=== PATIENT | female | born 1995 | race American Indian/Alaskan Native ===

== ENCOUNTER 2016-09-08 21:40 | Observation (INO) | payer OTHER ==
[2016-09-08 22:42] VITALS: BMI 34.3
[2016-09-08 22:45] VITALS: TEMP 98.3
[2016-09-08] MEDS ORDERED: Sodium Chloride 0.9% 1,000 ML IV STA (23:52)
[2016-09-09 00:52] LABS: ADD MANUAL DIFF? NO
[2016-09-09 01:08] LABS: PH,URINE 6.5 (4.7-8.0); URINE BILIRUBIN NEGATIVE (NEGATIVE); URINE BLOOD NEGATIVE (NEGATIVE); URINE GLUCOSE (UA) NEGATIVE (NEGATIVE); URINE KETONE NEGATIVE (NEGATIVE); URINE LEUKOCYTE ESTERASE NEGATIVE Leu/uL (NEGATIVE)
[2016-09-09 01:09] LABS: BASO # 0.02 K/mm3 (0.0-2.0); BASO % 0.3 % (0.0-3.0); EOS # 0.4 (0.0-0.7); GRAN # 3.43 (1.4-6.5); GRAN % 47.9 % (50.0-68.0); HEMATOCRIT 37.6 % (36.0-48.0); LYMPH # 2.9 (1.2-3.4); LYMPH % 40.4 % (22.0-35.0); MEAN CELL VOLUME 85.6 fL (80.0-105.0); MEAN CORPUSCULAR HEMOGLOBIN 29.8 pg (25.0-35.0); MEAN CORPUSCULAR HGB CONC 34.8 g/dl (31.0-37.0); MEAN PLATELET VOLUME 9.8 fl (7.0-11.0); MONO # 0.5 (0.1-0.6); MONO % 6.4 % (1.0-6.0); PLATELET COUNT 326 10^3/uL (120.0-450.0); URINE APPEARANCE CLEAR (CLEAR); URINE COLOR YELLOW (YELLOW); WHITE BLOOD COUNT 7.2 10^3/ul (4.5-11.0)
[2016-09-09 01:10] LABS: URINE PROTEIN NEGATIVE mg/dL (<30 mg/dL)
[2016-09-09 01:15] LABS: ALB/GLOB RATIO 1.1 (1.1-1.8); ALKALINE PHOSPHATASE 97 U/L (38-133); ALT/SGPT 15 U/L (7-56); AST/SGOT 34 U/L (15-39); BILIRUBIN,TOTAL 0.5 mg/dL (0.2-1.3); BLOOD UREA NITROGEN 10 mg/dL (7-21); CALCIUM 9.7 mg/dL (8.4-10.5); CARBON DIOXIDE 25 mmol/L (21-33); CHLORIDE 102 mmol/L (98-107); GFR AFRICAN-AMERICAN > 60; GLUCOSE,RANDOM 91 mg/dL (70-110); POTASSIUM 3.7 mmol/L (3.6-5.0); SODIUM 139 mmol/L (132-148); TOTAL PROTEIN 8.5 g/dL (5.8-8.3)
--- NOTE | 2016-09-09 01:41 | US ---
EXAM: US First Trimester, Transabdominal CLINICAL HISTORY: 21 years old, female; Pain; Pelvic pain; Patient HX: Pelvic pain +ucg TECHNIQUE: Real-time transabdominal obstetrical ultrasound of the maternal pelvis and a first trimester with image documentation. COMPARISON: No relevant prior studies available. FINDINGS: Gestation: No intrauterine gestational sac. Uterus/cervix: Endometrium: 1.1 cm in thickness. Closed cervix. Ovaries: Normal ovaries. No adnexal masses. Free fluid: No significant free fluid. IMPRESSION: 1. No intrauterine gestation. DDX: Early IUP, missed , ectopic . 2. Incidental/non-acute findings are described above. EXAM: US , Transvaginal CLINICAL HISTORY: 21 years old, female; Pain; Pelvic pain; Patient HX: Pelvic pain +ucg TECHNIQUE: Real-time transvaginal obstetrical ultrasound of the maternal pelvis and a first trimester with image documentation. Transvaginal imaging was used for better evaluation of the fetus and adnexa. COMPARISON: No relevant prior studies available. FINDINGS: Gestation: No intrauterine gestational sac. Uterus/cervix: Endometrium: 1.1 cm in thickness. Closed cervix. Ovaries: Normal ovaries. No adnexal masses. Free fluid: No significant free fluid.
--- NOTE | 2016-09-09 03:00 | ED PDOC ---
Arrival/HPI <Wayne Asencio - Last Filed: 09/09/16 03:47> - General Historian: Patient <Melissa Robles - Last Filed: 09/09/16 04:12> - General Chief Complaint: Abdominal Pain Time Seen by Provider: 09/08/16 23:52 - History of Present Illness Narrative History of Present Illness (Text): 09/09/16 21-year-old female presents today with lower abdominal cramping and nausea 1 week. Patient states her last menstrual period was August 03. Patient denies vaginal bleeding or vaginal discharge. Denies back pain. Patient states she has an occasional abdominal cramp. Denies pain at present time. No chest pain or shortness of breath. No fevers or chills. Denies urinary symptoms. No other complaints (Melissa Robles) Past Medical History - Provider Review Nursing Documentation Reviewed: Yes - Travel History Have you recently traveled outside [place] w/in the past 3 mons?: No - Infectious Disease Hx of Infectious Diseases: None - Tetanus Immunization Tetanus Immunization: Up to Date - Cardiac Hx Cardiac Disorders: No - Pulmonary Hx Asthma: Yes - Neurological Hx Neurological Disorder: No - HEENT Hx HEENT Disorder: No - Renal Hx Renal Disorder: No - Endocrine/Metabolic Hx Endocrine Disorders: No - Hematological/Oncological Hx Blood Disorders: No - Integumentary Hx Dermatological Disorder: No - Musculoskeletal/Rheumatological Hx Musculoskeletal Disorders: No - Gastrointestinal Hx Gastrointestinal Disorders: No - Genitourinary/Gynecological Hx Genitourinary Disorders: No - Psychiatric Hx Psychophysiologic Disorder: No Hx Depression: No Hx Emotional Abuse: No Hx Physical Abuse: No Hx Substance Use: Yes - Past Surgical History Past Surgical History: No Previous - Anesthesia Hx Anesthesia: No Hx Anesthesia Reactions: No Hx Malignant Hyperthermia: No - Suicidal Assessment Feels Threatened In Home Enviroment: No <Melissa Robles - Last Filed: 09/09/16 04:12> Family/Social History - Physician Review Nursing Documentation Reviewed: Yes Family/Social History: Unknown Family HX Smoking Status: Never Smoked Hx Alcohol Use: Yes Hx Substance Use: Yes Substance used: Marijuana Hx Substance Use Treatment: No <Melissa Robles - Last Filed: 09/09/16 04:12> Allergies/Home Meds <Wayne Asencio - Last Filed: 09/09/16 03:47> <Melissa Robles T - Last Filed: 09/09/16 04:12> Allergies/Adverse Reactions: Allergies No Known Allergies Allergy (Verified 09/08/16 22:41) Home Medications: Home Meds Medication Instructions Recorded Confirmed Albuterol HFA [Ventolin HFA 90 1 puff INH PRN PRN 09/08/16 09/08/16 mcg/actuation (8 g)] Review of Systems - Review of Systems Constitutional: absent: Fatigue, Fevers Respiratory: absent: SOB, Cough Cardiovascular: absent: Chest Pain, Palpitations Gastrointestinal: Abdominal Pain, Nausea. absent: Constipation, Diarrhea, Vomiting Genitourinary Female: absent: Dysuria, Frequency, Hematuria Musculoskeletal: absent: Arthralgias, Back Pain, Neck Pain Skin: absent: Rash, Pruritis Neurological: absent: Headache, Dizziness Psychiatric: absent: Anxiety, Depression, Suicidal Ideation <Melissa Robles - Last Filed: 09/09/16 04:12> Physical Exam Vital Signs Reviewed: Yes Temperature: Afebrile Blood Pressure: Normal Pulse: Regular Respiratory Rate: Normal Appearance: Positive for: Well-Appearing, Non-Toxic, Comfortable Pain Distress: None Mental Status: Positive for: Alert and Oriented X 3 - Systems Exam Head: Present: Atraumatic Mouth: Present: Moist Mucous Membranes Neck: Present: Normal Range of Motion Respiratory/Chest: Present: Clear to Auscultation, Good Air Exchange. No: Respiratory Distress, Accessory Muscle Use Cardiovascular: Present: Regular Rate and Rhythm, Normal S1, S2. No: Murmurs Abdomen: Present: Normal Bowel Sounds. No: Tenderness, Distention, Peritoneal Signs, Rebound, Guarding Genitourinary/Pelvic Exam: Present: Normal External Genitalia, Cervical os Closed, Other (chaparoned by Nicole SMITH RN). No: Vaginal Discharge, Vaginal Bleeding, Vaginal Lesions, Adenexal Tenderness, Adenexal Mass, Cervical Motion Tendernes, Odor Back: Present: Normal Inspection. No: CVA Tenderness Upper Extremity: Present: Normal ROM Lower Extremity: Present: Normal ROM Neurological: Present: GCS=15, Speech Normal Skin: Present: Warm, Dry, Normal Color. No: Rashes Psychiatric: Present: Alert, Oriented x 3 <Melissa Robles - Last Filed: 09/09/16 04:12> Vital Signs Temp Pulse Resp BP Pulse Ox 09/09/16 03:49 78 14 125/75 99 09/09/16 02:44 88 15 128/83 98 09/09/16 00:00 90 15 126/80 98 09/08/16 22:44 98.3 F 98 H 15 95/74 L 100 Medical Decision Making <Wayne Asencio - Last Filed: 09/09/16 03:47> <Melissa Robles - Last Filed: 09/09/16 04:12> ED Course and Treatment: 09/09/16 04:05 Patient is nontoxic well appearing in no distress. Vital signs are stable CBC: Within normal limits CMP: Within normal limits Beta hC.34 TYPE AND SCREEN: o+ Urinalysis:: wnl Ultrasound: FINDINGS: Gestation: No intrauterine gestational sac. Uterus/cervix: Endometrium: 1.1 cm in thickness. Closed cervix. Ovaries: Normal ovaries. No adnexal masses. Free fluid: No significant free fluid. IMPRESSION: 1. No intrauterine gestation. DDX: Early IUP, missed , ectopic . 2. Incidental/non-acute findings are described above. EXAM: US , Transvaginal FINDINGS: Gestation: No intrauterine gestational sac. Uterus/cervix: Endometrium: 1.1 cm in thickness. Closed cervix. Ovaries: Normal ovaries. No adnexal masses. Free fluid: No significant free fluid. IMPRESSION: 1. No intrauterine gestation. DDX: Early IUP, missed , ectopic . 2. Incidental/non-acute findings are described above. Discussed all the results the patient. advised f[facility]u with the [facility] shift lead within the next 2 days. Patient was advised to take vitamins daily. She was advised to stop smoking and drinking. She is advised not to use drugs. Patient was advised to return in 2 days (48 hours) for repeat beta hCG. I discussed signs and symptoms of ectopic with the patient. I advised that that this may just be an early that we cannot rule out ectopic at this time and the patient needs to have close follow-up. I advised immediate return if symptoms worsen,persist or if new symptoms develop. Patient verbalizes understanding of discharge instructions and need for immediate followup. all aspects of this case were discussed the attending of record. Impression: Positive test, abdominal pain Tylenol every 4 hours as needed for pain Increase fluids Take vitamins daily Followup with the [facility] MANAGER within the next 2 days Return immediately if symptoms worsen persist or if new symptoms develop: High fevers, heavy bleeding, severe abdominal pain, vomiting, diarrhea, dizziness or weakness or any other concerning symptoms develop. Repeat the beta hCG in 48 hours (Melissa Robles) - Lab Interpretations Lab Results: Lab Results 09/08/16 01:20: Blood Type O POSITIVE, Antibody Screen Negative, BBK History Checked No verified bt - RAD Interpretation Radiology Orders: 09/08/16 23:52 OB TRANSVAGINAL [US] Stat - Medication Orders Current Medication Orders: Discontinued Medications Sodium Chloride (Sodium Chloride 0.9%) 1,000 mls @ 999 mls/hr IV .Q1H1M STA Stop: 09/09/16 00:52 Last Admin: 09/09/16 02:46 Dose: 999 MLS/HR eMAR Start Stop Document 09/09/16 02:46 LAC (Rec: 09/09/16 02:46 LAC [id number]) Intravenous Solution Start Date 09/09/16 Start Time 00:01 End Date 09/09/16 End time 01:00 Total Infusion Time 59 ED OBSERVATION <Wayne Asencio - Last Filed: 09/09/16 03:47> Discharge: Yes Date of observation admission: 09/08/16 Time of observation admission: 23:55 <Melissa Robles - Last Filed: 09/09/16 04:12> - Observation admission statement Patient is being placed in observation because:: abdominal pain (Melissa Robles) - Goals of Observation Goals of observation are:: improvement in symptoms (Melissa Robles) - Progress Note Progress Note: 09/09/16 01:30 pt non toxic well appearing; no distress. resting comfortably in er. 09/09/16 02:00 pt in no distress; vitals stable. all results discussed with patient (Melissa Robles) - PA / [employer] / Resident Statement MD/DO has reviewed & agrees with the documentation as recorded. <Wayne Asencio - Last Filed: 09/09/16 03:47> Disposition/Present on Arrival <Wayne Asencio - Last Filed: 09/09/16 03:47> - Present on Arrival Any Indicators Present on Arrival: No History of DVT/PE: No History of Uncontrolled Diabetes: No Urinary Catheter: No History of Decub. Ulcer: No History Surgical Site Infection Following: None - Disposition Have Diagnosis and Disposition been Completed?: Yes Disposition Time: 02:40 Patient Plan: Discharge <Melissa Robles - Last Filed: 09/09/16 04:12> - Disposition Diagnosis: Positive test, Abdominal pain Disposition: HOME/ ROUTINE Patient Problems: Current Active Problems Problem Status Diagnosed Abdominal pain Acute Positive test Acute Condition: GOOD
[2016-09-09 03:50] VITALS: BP 125/75; PULSE 78; RESP 14; O2SAT 99
== END 2016-09-09 03:49 | disposition home or self-care (01) ==
LOC: ED 21:40 → EROBSV 23:55
PROVIDERS: ADMIT Emergency Medicine; ATTEND Emergency Medicine
DX: Z32.01 Encounter for pregnancy test, result positive (principal); R10.30 Lower abdominal pain, unspecified
CPT/HCPCS: 76817; 80053; 81003; 84702; 85025; 86850; 86900; 87086; 96360; 99284; G0378; J7040

== ENCOUNTER 2016-09-11 13:02 | Emergency (ER) | payer OTHER ==
[2016-09-11 13:23] VITALS: BMI 37.8
[2016-09-11 13:27] VITALS: BP 127/71; PULSE 98; RESP 16; TEMP 98.8; O2SAT 98
--- NOTE | 2016-09-11 14:25 | ED PDOC ---
Arrival/HPI - General Chief Complaint: Abdominal Pain Time Seen by Provider: 09/11/16 13:31 Historian: Patient - History of Present Illness Narrative History of Present Illness (Text): 09/11/16 15:02 21-year-old female presents today for repeat beta hCG. Patient was seen in the ER 2 days ago with intermittent abdominal pain. Patient found out that she was . Patient at present time denies nausea vomiting diarrhea constipation. Denies abdominal pain. No vaginal bleeding or vaginal discharge. Patient states she is just here for repeat blood test. Past Medical History - Provider Review Nursing Documentation Reviewed: Yes - Travel History Have you recently traveled outside [place] w/in the past 3 mons?: No - Infectious Disease Hx of Infectious Diseases: None - Tetanus Immunization Tetanus Immunization: Up to Date - Cardiac Hx Cardiac Disorders: No - Pulmonary Hx Respiratory Disorders: Yes Hx Asthma: Yes - Neurological Hx Neurological Disorder: No - HEENT Hx HEENT Disorder: No - Renal Hx Renal Disorder: No - Endocrine/Metabolic Hx Endocrine Disorders: No - Hematological/Oncological Hx Blood Disorders: No - Integumentary Hx Dermatological Disorder: No - Musculoskeletal/Rheumatological Hx Musculoskeletal Disorders: No - Gastrointestinal Hx Gastrointestinal Disorders: No - Genitourinary/Gynecological Hx Genitourinary Disorders: No - Psychiatric Hx Psychophysiologic Disorder: No Hx Depression: No Hx Emotional Abuse: No Hx Physical Abuse: No Hx Substance Use: No - Past Surgical History Past Surgical History: No Previous - Anesthesia Hx Anesthesia: No Hx Anesthesia Reactions: No Hx Malignant Hyperthermia: No - Suicidal Assessment Feels Threatened In Home Enviroment: No Family/Social History - Physician Review Nursing Documentation Reviewed: Yes Family/Social History: Unknown Family HX Smoking Status: Never Smoked Hx Alcohol Use: No Hx Substance Use: No Substance used: Marijuana Hx Substance Use Treatment: No Allergies/Home Meds Allergies/Adverse Reactions: Allergies No Known Allergies Allergy (Verified 09/11/16 13:23) Home Medications: Home Meds Medication Instructions Recorded Confirmed Albuterol HFA [Ventolin HFA 90 1 puff INH PRN PRN 09/08/16 09/11/16 mcg/actuation (8 g)] Review of Systems - Review of Systems Constitutional: absent: Fatigue, Fevers Respiratory: absent: SOB, Cough Cardiovascular: absent: Chest Pain, Palpitations Gastrointestinal: absent: Abdominal Pain, Diarrhea, Nausea, Vomiting Genitourinary Female: absent: Dysuria, Frequency, Hematuria, Vaginal Bleeding, Vaginal Discharge Musculoskeletal: absent: Arthralgias, Back Pain, Neck Pain Skin: absent: Rash, Pruritis Neurological: absent: Headache, Dizziness Psychiatric: absent: Anxiety, Depression Physical Exam Vital Signs Reviewed: Yes Vital Signs Temp Pulse Resp BP Pulse Ox 09/11/16 13:23 98.8 F 98 H 16 127/71 98 Temperature: Afebrile Blood Pressure: Normal Pulse: Regular Respiratory Rate: Normal Appearance: Positive for: Well-Appearing, Non-Toxic, Comfortable Pain Distress: None Mental Status: Positive for: Alert and Oriented X 3 - Systems Exam Head: Present: Atraumatic Neck: Present: Normal Range of Motion Respiratory/Chest: Present: Clear to Auscultation, Good Air Exchange. No: Respiratory Distress, Accessory Muscle Use Cardiovascular: Present: Regular Rate and Rhythm, Normal S1, S2. No: Murmurs Abdomen: Present: Normal Bowel Sounds. No: Tenderness, Distention, Peritoneal Signs, Rebound, Guarding Back: Present: Normal Inspection. No: CVA Tenderness Lower Extremity: No: Edema Neurological: Present: GCS=15, Speech Normal Skin: Present: Warm, Dry, Normal Color. No: Rashes Psychiatric: Present: Alert, Oriented x 3 Medical Decision Making ED Course and Treatment: 09/11/16 15:03 Patient nontoxic well-appearing no distress with stable vital signs presenting for repeat beta hCG. Beta hC.40 which has increased from 760.34 2 days ago Advised the patient that even though the numbers are doubling she will still need to have an ultrasound to confirm that the fetus is within the uterus. Patient was advised of the signs and symptoms of ectopic and the need for immediate return of those symptoms develop. I discussed the results in depth with the patient and advised follow-up with the molecular biologist within the next 2 days. I've advised continuing vitamins as prescribed. Advised me to return if patient develops any concerning symptoms. Patient verbalizes understanding of discharge instructions and need for immediate followup. Impression: Positive test follow-up with molecular biologist within the next 2 days Increase fluids vitamins daily Return if symptoms worsen persist or if new concerning symptoms develop - Lab Interpretations Lab Results: Lab Results 09/11/16 13:40: Beta HCG, Quant 1887.40 H Disposition/Present on Arrival - Present on Arrival Any Indicators Present on Arrival: No History of DVT/PE: No History of Uncontrolled Diabetes: No Urinary Catheter: No History of Decub. Ulcer: No History Surgical Site Infection Following: None - Disposition Have Diagnosis and Disposition been Completed?: Yes Diagnosis: Positive test Disposition: HOME/ ROUTINE Disposition Time: 14:41 Patient Plan: Discharge Patient Problems: Current Active Problems Problem Status Diagnosed Positive test Acute Condition: GOOD Additional Instructions: Increase fluids Followup with the [facility] TE[facility]ER within the next 2 days Return immediately if symptoms worsen persist or if new symptoms develop: High fevers, heavy bleeding, severe abdominal pain, vomiting, diarrhea, dizziness or weakness or any other concerning symptoms develop. Referrals: Isabella Tee MD [Medical Doctor] - Follow up with primary
== END 2016-09-11 15:21 | disposition home or self-care (01) ==
LOC: ED 13:02
DX: Z32.01 Encounter for pregnancy test, result positive (principal)

== ENCOUNTER 2016-11-17 15:11 | Emergency (ER) | payer OTHER ==
[2016-11-17 15:11] VITALS: BMI 37.8
[2016-11-17 15:49] VITALS: TEMP 99
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
[2016-11-17 16:14] VITALS: RESP 18; O2SAT 98
[2016-11-17 16:15] LABS: ADD MANUAL DIFF? NO
[2016-11-17 16:19] LABS: BASO # 0.02 K/mm3 (0.0-2.0); BASO % 0.3 % (0.0-3.0); EOS # 0.3 (0.0-0.7); EOS % 4.4 % (1.5-5.0); GRAN # 4.58 (1.4-6.5); GRAN % 62.4 % (50.0-68.0); HEMATOCRIT 34.4 % (36.0-48.0); LYMPH # 1.8 (1.2-3.4); LYMPH % 24.4 % (22.0-35.0); MEAN CELL VOLUME 87.3 fL (80.0-105.0); MEAN CORPUSCULAR HEMOGLOBIN 29.9 pg (25.0-35.0); MEAN CORPUSCULAR HGB CONC 34.3 g/dl (31.0-37.0); MEAN PLATELET VOLUME 9.3 fl (7.0-11.0); MONO # 0.6 (0.1-0.6); MONO % 8.5 % (1.0-6.0); PLATELET COUNT 281 10^3/uL (120.0-450.0); RED CELL DISTRIBUTION WIDTH 13.7 % (11.5-14.5); URINE APPEARANCE SL CLOUDY (CLEAR); URINE BILIRUBIN NEGATIVE (NEGATIVE); URINE BLOOD NEGATIVE (NEGATIVE); URINE COLOR YELLOW (YELLOW); URINE GLUCOSE (UA) NEGATIVE (NEGATIVE); URINE KETONE TRACE mg/dL (NEGATIVE); URINE LEUKOCYTE ESTERASE NEGATIVE Leu/uL (NEGATIVE); URINE PROTEIN 30 mg/dL (<30 mg/dL); WHITE BLOOD COUNT 7.3 10^3/ul (4.5-11.0)
[2016-11-17 16:31] LABS: ALB/GLOB RATIO 1.1 (1.1-1.8); ALKALINE PHOSPHATASE 68 U/L (38-133); ALT/SGPT 31 U/L (7-56); AST/SGOT 22 U/L (15-39); BILIRUBIN,TOTAL 0.3 mg/dL (0.2-1.3); BLOOD UREA NITROGEN 10 mg/dL (7-21); CALCIUM 9.5 mg/dL (8.4-10.5); CARBON DIOXIDE 25 mmol/L (21-33); CHLORIDE 107 mmol/L (98-107); GFR AFRICAN-AMERICAN > 60; GLUCOSE,RANDOM 86 mg/dL (70-110); POTASSIUM 3.8 mmol/L (3.6-5.0); SODIUM 136 mmol/L (132-148); TOTAL PROTEIN 7.3 g/dL (5.8-8.3)
[2016-11-17 16:47] LABS: URINE BACTERIA FEW (NEG); URINE RBC NEGATIVE /hpf (0-2); URINE WBC 0 - 2 /hpf (0-6)
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
[2016-11-17 17:46] VITALS: BP 131/75; PULSE 89
--- NOTE | 2016-11-17 18:28 | RAD ---
PROCEDURE: Right Foot Radiographs. HISTORY: Pain COMPARISON: None. FINDINGS: BONES: Bone alignment and mineralization are normal. No acute fracture or bone destruction. JOINTS: Normal. SOFT TISSUES: Normal. OTHER FINDINGS: None. IMPRESSION: No acute fracture or dislocation.
== END 2016-11-17 18:23 | disposition home or self-care (01) ==
LOC: ED 15:11
DX: S90.31XA Contusion of right foot, initial encounter (principal); V49.9XXA Car occupant (driver) (passenger) injured in unspecified traffic accident, initial encounter; O26.891 Other specified pregnancy related conditions, first trimester; R10.2 Pelvic and perineal pain; Z3A.14 14 weeks gestation of pregnancy

== ENCOUNTER 2017-05-26 17:41 | Inpatient (IN) | payer OTHER ==
[2017-05-26 17:41] VITALS: BMI 37.8
--- NOTE | 2017-05-26 18:46 | ED PDOC ---
Arrival/HPI - History of Present Illness Time/Duration: 4-6 hours Symptom Onset: Sudden Symptom Course: Worsening Quality: Unable to Describe Severity Level: 10 <Misha Chen - Last Filed: 05/26/17 23:13> <Nemo Rod - Last Filed: 05/29/17 07:58> - General Chief Complaint: Abdominal Pain Time Seen by Provider: 05/26/17 17:47 - History of Present Illness Narrative History of Present Illness (Text): 21 year old female with PMHx of Asthma and gestational diabetes who presents to the ED complaining of non-radiating lower Abdominal pain with associated nausea and vomiting. Patient is unable to describe the quality of the pain but rates it a 10/10. She denies any modalities to control the pain or relieving factors. Patient originally thought she was having hunger pains so she ate syriac food and the pain worsened. Patient denies any fevers, chills, chest pain, SOB, diarrhea, constipation, urinary frequency, dysuria, hematuria, or blood in the stool. Patient gave by 3 weeks ago. (Misha Chen) Past Medical History - Provider Review Nursing Documentation Reviewed: Yes - Infectious Disease Hx of Infectious Diseases: None - Tetanus Immunization Tetanus Immunization: Up to Date - Reproductive Menopause: No - Cardiac Hx Cardiac Disorders: No - Pulmonary Hx Respiratory Disorders: Yes Hx Asthma: Yes - Neurological Hx Neurological Disorder: No - HEENT Hx HEENT Disorder: No - Renal Hx Renal Disorder: No - Endocrine/Metabolic Hx Endocrine Disorders: No - Hematological/Oncological Hx Blood Disorders: No - Integumentary Hx Dermatological Disorder: No - Musculoskeletal/Rheumatological Hx Musculoskeletal Disorders: No - Gastrointestinal Hx Gastrointestinal Disorders: No - Genitourinary/Gynecological Hx Genitourinary Disorders: No - Psychiatric Hx Psychophysiologic Disorder: No Hx Depression: No Hx Emotional Abuse: No Hx Physical Abuse: No Hx Substance Use: No - Past Surgical History Past Surgical History: No Previous - Surgical History Other/Comment: C Section - Anesthesia Hx Anesthesia: No Hx Anesthesia Reactions: No Hx Malignant Hyperthermia: No - Suicidal Assessment Feels Threatened In Home Enviroment: No <Misha Chen - Last Filed: 05/26/17 23:13> Family/Social History - Physician Review Nursing Documentation Reviewed: Yes Family/Social History: Diabetes, Hypertension Smoking Status: Never Smoked Hx Alcohol Use: Yes Frequency of alcohol use: Socially Hx Substance Use: No Substance used: Marijuana Hx Substance Use Treatment: No <Casa Chenblanche - Last Filed: 05/26/17 23:13> Allergies/Home Meds <GustavoMisha - Last Filed: 05/26/17 23:13> <Nemo Rod - Last Filed: 05/29/17 07:58> Allergies/Adverse Reactions: Allergies No Known Allergies Allergy (Verified 11/17/16 15:46) Home Medications: Home Meds Medication Instructions Recorded Confirmed Albuterol HFA [Ventolin HFA 90 1 puff INH PRN PRN 09/08/16 05/28/17 mcg/actuation (8 g)] Review of Systems - Physician Review All systems were reviewed & negative as marked: Yes (As per HPI) - Review of Systems Constitutional: absent: Fevers Respiratory: Normal. absent: SOB Cardiovascular: Normal. absent: Chest Pain <GustavoMisha - Last Filed: 05/26/17 23:13> Physical Exam Vital Signs Reviewed: Yes Temperature: Afebrile Blood Pressure: Normal Pulse: Regular Respiratory Rate: Normal Appearance: Positive for: Uncomfortable Pain Distress: Severe Mental Status: Positive for: Alert and Oriented X 3 - Systems Exam Head: Present: Atraumatic, Normocephalic Extroacular Muscles: Present: EOMI Conjunctiva: Present: Normal Ears: Present: Normal Mouth: Present: Moist Mucous Membranes Nose (External): Present: Atraumatic Respiratory/Chest: Present: Clear to Auscultation. No: Wheezes, Rales, Rhonchi Cardiovascular: Present: Regular Rate and Rhythm, Normal S1, S2. No: Murmurs Abdomen: Present: Tenderness (periumbilical, RUQ, and most tender in RLQ), Peritoneal Signs, Rovsing's Sign Present Back: No: CVA Tenderness Upper Extremity: Present: Normal Inspection Lower Extremity: Present: Normal Inspection. No: Edema Neurological: Present: GCS=15, Speech Normal Skin: Present: Warm, Dry, Normal Color, Other ( Scar, clean, dry, without erythema, or dehiscense) Psychiatric: Present: Alert, Oriented x 3 <Misha Chen - Last Filed: 05/26/17 23:13> Vital Signs Temp Pulse Resp BP Pulse Ox 05/27/17 00:27 98.2 F 55 L 17 129/61 100 05/26/17 22:23 98.9 F 05/26/17 22:21 57 L 18 125/56 L 100 05/26/17 17:53 98.9 F 76 16 132/84 99 Medical Decision Making - Lab Interpretations I have reviewed the lab results: Yes - RAD Interpretation Truck Bench Mechanic: Radiologist <Misha Chen - Last Filed: 05/26/17 23:13> <Nemo Rod - Last Filed: 05/29/17 07:58> ED Course and Treatment: 21 year old female with PMHx of Asthma and Gestational Diabetes presents with Abdominal Pain. --CBC/CMP --UA --Lipase --NS fluid Bolus --Toradol 30 --Zofran --CT Abd/Pelvis no IV or PO contrast --Reassess and Disposition Reassessment: Pain has improved from a 10/10 to a [address] Abd/Pelvis IMPRESSION by Dr. Amanda Blanco: -Appendicolith. Appendix is dilated to 14 mm and fluid filled. Appearance -consistent with acute appendicitis. Correlate clinically. Additional details/findings as above. --Patient to be admitted. Case discussed with Dr. Marte and vice president supply chain 05/26/17 23:13 (Misha Chen) 05/26/17 21:45 ABD& PELVIS W/O PO OR IV CONT CT Scan This imaging exam was performed at [facility] EXAM: CT Abdomen and Pelvis Without Intravenous Contrast CLINICAL HISTORY: 21 years old, female; Signs and symptoms; Nausea and vomiting; Patient HX:Post 2x weeks; Additional info: Abdominal pain TECHNIQUE: Axial computed tomography images of the abdomen and pelvis without intravenous contrast. All CT scans at this facility use one or more dose reduction techniques, viz.: automated exposure control; ma/kV adjustment per patient size (including targeted exams where dose is matched to indication; i.e. head); or iterative reconstruction technique. Coronal and sagittal reformatted images were created and reviewed. COMPARISON: CT - ABD PELVIS W/O PO OR IV CONT 2015-06-19 09:41 FINDINGS: Lower thorax: No acute findings. ABDOMEN: Liver: No acute abnormality as visualized. Gallbladder and bile ducts: No acute abnormality as visualized. Pancreas: No acute abnormality as visualized. Spleen: No splenomegaly. Adrenals: No acute abnormality as visualized. Kidneys and ureters: No obstructing stones. No hydronephrosis. Stomach and bowel: Limited evaluation without contrast. No obstruction. Appendix: Appendicolith. Appendix is dilated to 14 mm and fluid filled. PELVIS: Bladder: Collapsed. Limited evaluation. Reproductive: Enlarged uterus consistent with status. Limited evaluation without contrast. ABDOMEN and PELVIS: Intraperitoneal space: No free air. No significant fluid collection. Bones: No acute fracture. Soft tissues: Fat-containing umbilical hernia. Vasculature: No abdominal aortic aneurysm. Lymph nodes: Shotty nodes. Please note evaluation for underlying visceral lesions/abnormalities limited without intravenous contrast. IMPRESSION: Appendicolith. Appendix is dilated to 14 mm and fluid filled. Appearance consistent with acute appendicitis. Correlate clinically. Additional details/findings as above. 05/26/17 22:45 Patient seen and examined with biomedical specialist. Patient recently had delivered baby via csection 2 weeks ago. States that she developed abdominal pain with nausea gradually today. On exam she has focal diffuse right sided pain. Pain not colikcy. Denies urinary symptoms. Urine dip positive for although patient is TWO WEEKS and this result likely due to recent delivery. Patient with improved pain after toradol and ivf and zofran. CT reviewed suggestive of appendicitis. CT findings reviewed with patient and mother, I discussed case and exam with on- call surgeron Dr. Diaz, vice president supply chain examined patient in ED. Patient on re-exam is smiling, comfortable. Nausea improved, afebrile. Pain is persistent but improved. IV antibiotics initiated. No peritoneal signs on re-exam. Mother requests Dr. Rios for patient's admitting physician, we discussed case with Dr. Marte covering for Dr. Rios who accepts admission to his service. (Nemo Rod) - Lab Interpretations Microbiology Results: Microbiology Results 05/26/17 20:00 Urine,Clean Catch Urine Culture - Final No Growth (<1,000 CFU/ML) Lab Results: 05/26/17 19:15 05/26/17 21:00 Lab Results 05/26/17 21:00: Sodium 142, Potassium 3.7, Chloride 107, Carbon Dioxide 20 L, Anion Gap 19, BUN 7, Creatinine 0.8, Est GFR ( Amer) > 60, Est GFR (Non- Af Amer) > 60, Random Glucose 77, Calcium 9.7, Total Bilirubin 0.7, AST 29, ALT 29, Alkaline Phosphatase 184 H, Total Protein 8.6 H, Albumin 4.6, Globulin 4.0, Albumin/Globulin Ratio 1.2, Lipase 56 05/26/17 19:15: PT 12.2, INR 1.12 H, APTT 30.3 05/26/17 19:15: Urine Color Yellow, Urine Appearance Sl cloudy, Urine pH 6.0, Ur Specific [place] 1.020, Urine Protein 30 H, Urine Glucose (UA) Negative, Urine Ketones Negative, Urine Blood Large H, Urine Nitrate Negative, Urine Bilirubin Negative, Urine Urobilinogen 0.2, Ur Leukocyte Esterase Trace H, Urine RBC Tntc, Urine WBC 5 - 10, Ur Epithelial Cells 4 - 5, Urine Bacteria Mod 05/26/17 19:15: WBC 10.6 D, RBC 4.47, Hgb 12.8, Hct 39.3, MCV 87.9, MCH 28.6, MCHC 32.6, RDW 15.1 H, Plt Count 346, MPV 10.5, Gran % 80.5 H, Lymph % (Auto) 13.6 L, [place] % (Auto) 3.3, Eos % (Auto) 2.4, Baso % (Auto) 0.2, Gran # 8.55 H, Lymph # 1.5, [place] # 0.4, Eos # 0.3, Baso # 0.02 - RAD Interpretation Radiology Orders: 05/26/17 18:51 ABD & PELVIS W/O PO OR IV CONT [CT] Stat - Medication Orders Current Medication Orders: Discontinued Medications Acetaminophen (Tylenol 325mg Tab) 650 mg PO Q6H PRN PRN Reason: Fever >100.4 F Famotidine (Pepcid) 20 mg IVP STAT STA Stop: 05/26/17 18:58 Last Admin: 05/26/17 19:28 Dose: 20 mg IVP Administration Document 05/26/17 19:28 RD (Rec: 05/26/17 19:36 RD [id number]) Charges for Administration # of IVP Administrations 1 Hydromorphone HCl (Dilaudid) 1 mg IVP Q4H PRN PRN Reason: Pain, moderate (4-7) Last Admin: 05/28/17 05:03 Dose: 1 mg MAR Pain Assessment Document 05/28/17 05:03 (Rec: 05/28/17 05:04 [id number]) Pain Reassessment Is this a pain reassessment? No Sleep Is patient sleeping during reassessment? No Presence of Pain Presence of Pain Yes Pain Scale Used Pain Scale Used Numeric Location Pain Location Body Site Abdomen Description Description Intermittent Intensity of Pain at present 7 IVP Administration Document 05/28/17 05:03 (Rec: 05/28/17 05:04 [id number]) Charges for Administration # of IVP Administrations 1 Re-Assess: [facility] Pain Assessment Document 05/28/17 06:03 [email or web address] (Rec: 05/28/17 06:34 [email or web address] [id number]) Pain Reassessment Is this a pain reassessment? Yes Sleep Is patient sleeping during reassessment? Yes Hydromorphone HCl (Dilaudid) 0.5 mg IVP Q15M PRN PRN Reason: Pain, moderate (4-7) Stop: 05/27/17 12:32 Sodium Chloride (Sodium Chloride 0.9%) 1,000 mls @ 999 mls/hr IV .Q1H1M STA Stop: 05/26/17 19:51 Last Admin: 05/26/17 19:32 Dose: 999 mls/hr eMAR Start Stop Document 05/26/17 19:32 RD (Rec: 05/26/17 19:32 RD [id number]) Intravenous Solution Start Date 05/26/17 Start Time 19:32 End Date 05/26/17 End time 20:32 Total Infusion Time 60 Ceftriaxone Sodium (Rocephin 1 Gram Ivpb) 1 gm in 100 mls @ 200 mls/hr IVPB ONCE STA PRN Reason: Protocol Stop: 05/26/17 22:11 Last Admin: 05/26/17 21:55 Dose: 200 mls/hr eMAR Start Stop Document 05/26/17 21:55 RD (Rec: 05/26/17 21:56 RD [id number]) Intravenous Solution Start Date 05/26/17 Start Time 21:55 End Date 05/26/17 End time 22:25 Total Infusion Time 30 Metronidazole (Flagyl) 500 mg in 100 mls @ 100 mls/hr IVPB STAT STA PRN Reason: Protocol Stop: 05/26/17 22:42 Last Admin: 05/26/17 23:00 Dose: 100 mls/hr eMAR Start Stop Document 05/26/17 23:00 RD (Rec: 05/26/17 23:01 RD [id number]) Intravenous Solution Start Date 05/26/17 Start Time 23:00 End Date 05/27/17 End time 00:00 Total Infusion Time 60 Dextrose/Sodium Chloride (Dextrose 5%/0.45% Ns 1000 Ml) 1,000 mls @ 100 mls/hr IV .Q10H LEOPOLDO Last Admin: 05/26/17 22:49 Dose: 100 mls/hr eMAR Start Stop Document 05/26/17 22:49 RD (Rec: 05/26/17 22:50 RD [id number]) Intravenous Solution Start Date 05/26/17 Start Time 22:50 Metronidazole (Flagyl) 250 mg in 50 mls @ 100 mls/hr IV Q8 LEOPOLDO PRN Reason: Protocol Stop: 06/01/17 06:01 Last Admin: 05/28/17 06:27 Dose: 100 mls/hr eMAR Start Stop Document 05/28/17 06:27 [email or web address] (Rec: 05/28/17 06:27 [email or web address] [id number]) Intravenous Solution Start Date 05/28/17 Start Time 06:27 End Date 05/28/17 End time 07:00 Total Infusion Time 33 Ceftriaxone Sodium (Rocephin 1 Gram Ivpb) 1 gm in 100 mls @ 100 mls/hr IVPB DAILY LEOPOLDO PRN Reason: Protocol Last Admin: 05/28/17 10:11 Dose: Lactated Ringer's (Lactated Ringer's) 1,000 mls @ 75 mls/hr IV .[id number] LEOPOLDO Stop: 05/27/17 12:46 Lactated Ringer's (Lactated Ringer's) 1,000 mls @ 100 mls/hr IV .Q10H LEOPOLDO Last Admin: 05/28/17 06:35 Dose: Potassium Chloride (Potassium Chloride 20 Meq/100 Ml) 20 meq in 100 mls @ 50 mls/hr IVPB Q2H LEOPOLDO Stop: 05/27/17 14:59 Last Admin: 05/27/17 17:20 Dose: 50 mls/hr eMAR Start Stop Document 05/27/17 17:20 Y (Rec: 05/27/17 17:20 [id number] Start Date 05/27/17 Start Time 17:20 End Date 05/27/17 End time 19:20 Total Infusion Time 120 Ketorolac Tromethamine (Toradol) 30 mg IVP ONCE ONE Stop: 05/26/17 18:56 Last Admin: 05/26/17 19:30 Dose: 30 mg MAR Pain Assessment Document 05/26/17 19:30 RD (Rec: 05/26/17 19:34 RD [id number]) Pain Reassessment Is this a pain reassessment? No Sleep Is patient sleeping during reassessment? No Presence of Pain Presence of Pain Yes IVP Administration Document 05/26/17 19:30 RD (Rec: 05/26/17 19:34 RD [id number]) Charges for Administration # of IVP Administrations 1 Morphine Sulfate (Morphine) 2 mg IVP Q4 PRN PRN Reason: Pain, Mild (1-3) Last Admin: 05/27/17 18:26 Dose: 2 mg MAR Pain Assessment Document 05/27/17 18:26 Y (Rec: 05/27/17 18:26 [id number] Pain Reassessment Is this a pain reassessment? No Sleep Is patient sleeping during reassessment? No Presence of Pain Presence of Pain Yes Pain Scale Used Pain Scale Used Numeric Description Intensity of Pain at present 8 IVP Administration Document 05/27/17 18:26 Y (Rec: 05/27/17 18:26 [id number] Charges for Administration # of IVP Administrations 1 Re-Assess: MAR Pain Assessment Document 05/27/17 19:26 [email or web address] (Rec: 05/27/17 20:29 [email or web address] Pain Reassessment Is this a pain reassessment? Yes Sleep Is patient sleeping during reassessment? No Presence of Pain Presence of Pain No Ondansetron HCl (Zofran Inj) 4 mg IVP ONCE ONE Stop: 05/26/17 18:56 Last Admin: 05/26/17 19:34 Dose: 4 mg IVP Administration Document 05/26/17 19:34 RD (Rec: 05/26/17 19:35 RD [id number]) Charges for Administration # of IVP Administrations 1 Ondansetron HCl (Zofran Inj) 4 mg IVP Q6H PRN PRN Reason: Nausea/Vomiting Last Admin: 05/27/17 07:40 Dose: 4 mg IVP Administration Document 05/27/17 07:40 YJ (Rec: 05/27/17 07:41 YJ [id number]) Charges for Administration # of IVP Administrations 1 Pantoprazole Sodium (Protonix Inj) 40 mg IVP DAILY LEOPOLDO Last Admin: 05/28/17 10:11 Dose: Not Given Non-Admin Reason: Patient Refused Potassium Chloride (K-Dur 20 Meq Er Tab) 40 meq PO ONCE ONE Stop: 05/27/17 07:59 Last Admin: 05/27/17 08:14 Dose: 40 meq Tramadol HCl (Ultram) 50 mg PO ONCE ONE Stop: 05/28/17 11:37 Last Admin: 05/28/17 12:02 Dose: 50 mg MAR Pain Assessment Document 05/28/17 12:02 SD (Rec: 05/28/17 12:02 SD [id number]) Pain Reassessment Is this a pain reassessment? No Presence of Pain Presence of Pain Yes Pain Scale Used Pain Scale Used Numeric Location Pain Location Body Site Abdomen <Misha Chen - Last Filed: 05/26/17 23:13> - Scribe Statement The provider has reviewed the documentation as recorded by the Scribe <Nemo Rod - Last Filed: 05/29/17 07:58> - Scribe Statement Neha Huang Provider Scribe Attestation: All medical record entries made by the Scribe were at my direction and personally dictated by me. I have reviewed the chart and agree that the record accurately reflects my personal performance of the history, physical exam, medical decision making, and the department course for this patient. I have also personally directed, reviewed, and agree with the discharge instructions and disposition. (Nemo Rod) Disposition/Present on Arrival - Present on Arrival Any Indicators Present on Arrival: No History of DVT/PE: No History of Uncontrolled Diabetes: No Urinary Catheter: No History of Decub. Ulcer: No History Surgical Site Infection Following: None - Disposition Have Diagnosis and Disposition been Completed?: Yes Disposition Time: 23:15 Patient Plan: Admission <Misha Chen - Last Filed: 05/26/17 23:13> <Nemo Rod - Last Filed: 05/29/17 07:58> - Disposition Diagnosis: Acute appendicitis Disposition: HOSPITALIZED Condition: STABLE
[2017-05-26] MEDS ORDERED: Sodium Chloride 0.9% 1,000 ML IV STA (18:51)
[2017-05-26 19:52] LABS: URINE BILIRUBIN NEGATIVE (NEGATIVE); URINE BLOOD LARGE (NEGATIVE); URINE GLUCOSE (UA) NEGATIVE (NEGATIVE); URINE KETONE NEGATIVE (NEGATIVE); URINE LEUKOCYTE ESTERASE TRACE Leu/uL (NEGATIVE); URINE PROTEIN 30 mg/dL (<30 mg/dL); URINE UROBILINOGEN 0.2 E.U./dL (<1 E.U./dL)
[2017-05-26 19:53] LABS: BASO # 0.02 K/mm3 (0.0-2.0); BASO % 0.2 % (0.0-3.0); EOS # 0.3 (0.0-0.7); EOS % 2.4 % (1.5-5.0); GRAN # 8.55 (1.4-6.5); GRAN % 80.5 % (50.0-68.0); HEMATOCRIT 39.3 % (36.0-48.0); LYMPH # 1.5 (1.2-3.4); LYMPH % 13.6 % (22.0-35.0); MEAN CELL VOLUME 87.9 fl (80.0-105.0); MEAN CORPUSCULAR HEMOGLOBIN 28.6 pg (25.0-35.0); MEAN CORPUSCULAR HGB CONC 32.6 g/dl (31.0-37.0); MEAN PLATELET VOLUME 10.5 fl (7.0-11.0); MONO # 0.4 (0.1-0.6); MONO % 3.3 % (1.0-6.0); RED CELL DISTRIBUTION WIDTH 15.1 % (11.5-14.5); WHITE BLOOD COUNT 10.6 10^3/ul (4.5-11.0)
[2017-05-26 19:55] LABS: URINE APPEARANCE SL CLOUDY (CLEAR); URINE COLOR YELLOW (YELLOW)
[2017-05-26 20:11] LABS: URINE RBC TNTC /hpf (0-2)
[2017-05-26 20:12] LABS: URINE BACTERIA MOD (NEG)
--- NOTE | 2017-05-26 21:23 | CT ---
EXAM: CT Abdomen and Pelvis Without Intravenous Contrast CLINICAL HISTORY: 21 years old, female; Signs and symptoms; Nausea and vomiting; Patient HX: Post 2x weeks; Additional info: Abdominal pain TECHNIQUE: Axial computed tomography images of the abdomen and pelvis without intravenous contrast. All CT scans at this facility use one or more dose reduction techniques, viz.: automated exposure control; ma/kV adjustment per patient size (including targeted exams where dose is matched to indication; i.e. head); or iterative reconstruction technique. Coronal and sagittal reformatted images were created and reviewed. COMPARISON: CT - ABD PELVIS W/O PO OR IV CONT 2015-06-19 09:41 FINDINGS: Lower thorax: No acute findings. ABDOMEN: Liver: No acute abnormality as visualized. Gallbladder and bile ducts: No acute abnormality as visualized. Pancreas: No acute abnormality as visualized. Spleen: No splenomegaly. Adrenals: No acute abnormality as visualized. Kidneys and ureters: No obstructing stones. No hydronephrosis. Stomach and bowel: Limited evaluation without contrast. No obstruction. Appendix: Appendicolith. Appendix is dilated to 14 mm and fluid filled. PELVIS: Bladder: Collapsed. Limited evaluation. Reproductive: Enlarged uterus consistent with status. Limited evaluation without contrast. ABDOMEN and PELVIS: Intraperitoneal space: No free air. No significant fluid collection. Bones: No acute fracture. Soft tissues: Fat-containing umbilical hernia. Vasculature: No abdominal aortic aneurysm. Lymph nodes: Shotty nodes. Please note evaluation for underlying visceral lesions/abnormalities limited without intravenous contrast. IMPRESSION: Appendicolith. Appendix is dilated to 14 mm and fluid filled. Appearance consistent with acute appendicitis. Correlate clinically. Additional details/findings as above.
[2017-05-26] MEDS ORDERED: cefTRIAXone 1 gm 1 GM/100 ML BAG IVPB STA (21:42)
[2017-05-26] MEDS ORDERED: metroNIDAZOLE IV 500 mg/100 ml 500 MG/100 ML BAG IVPB STA (21:43)
[2017-05-26 22:23] LABS: ALB/GLOB RATIO 1.2 (1.1-1.8); BLOOD UREA NITROGEN 7 mg/dL (7-21); CALCIUM 9.7 mg/dL (8.4-10.5); CARBON DIOXIDE 20 mmol/L (21-33); CHLORIDE 107 mmol/L (98-107); GFR AFRICAN-AMERICAN > 60; GLUCOSE,RANDOM 77 mg/dL (70-110); POTASSIUM 3.7 mmol/L (3.6-5.0); SODIUM 142 mmol/L (132-148); TOTAL PROTEIN 8.6 g/dL (5.8-8.3)
[2017-05-26 22:24] LABS: ALKALINE PHOSPHATASE 184 U/L (38-126); ALT/SGPT 29 U/L (7-56); AST/SGOT 29 U/L (14-36); BILIRUBIN,TOTAL 0.7 mg/dL (0.2-1.3)
[2017-05-26 22:36] LABS: INR 1.12 (0.93-1.08); PARTIAL THROMBOPLASTIN TIME 30.3 Seconds (25.1-36.5)
[2017-05-26] MEDS ORDERED: Dextrose 5%/0.45% NS 1,000 ML IV SCH (22:45)
[2017-05-26 22:54] LABS: LIPASE 56 U/L (23-300)
--- NOTE | 2017-05-26 23:07 | CP.PCM.CON ---
<Karen Jenkins - Last Filed: 05/27/17 06:49> History of Present Illness - History of Present Illness History of Present Illness: GENERAL SURGERY CONSULT NOTE FOR DR. SCOTT 21yo F with PMHx of asthma and 3 weeks presents to the ED with abdominal pain and vomiting. The pain began around 2:30pm today and was 10/10. It initially felt like gas. The patient then thought it was hunger pains so ate around 3pm but couldn't finish the food due to the pain and then vomited. She has vomited about 6 times including in the ED. The pain was located in the periumbilical area but then moved to the RLQ. Currently, she states that she feels better after the toradol. She does not have an appetite. Denies diarrhea or constipation. Last ate ~3pm today. PMHx: asthma, gestational diabetes Surgeries: 3 weeks ago Allergies: none Medications: none Social history: occasional etoh, denies tobacco or illicit drug use Review of Systems - Review of Systems All systems: reviewed and no additional remarkable complaints except (as per hpi ) Past Patient History - Infectious Disease Hx of Infectious Diseases: None - Tetanus Immunizations Tetanus Immunization: Up to Date - Past Social History Smoking Status: Never Smoked - CARDIAC Hx Cardiac Disorders: No - PULMONARY Hx Respiratory Disorders: Yes Hx Asthma: Yes - NEUROLOGICAL Hx Neurological Disorder: No - HEENT Hx HEENT Problems: No - RENAL Hx Chronic Kidney Disease: No - ENDOCRINE/METABOLIC Hx Endocrine Disorders: No - HEMATOLOGICAL/ONCOLOGICAL Hx Blood Disorders: No - INTEGUMENTARY Hx Dermatological Problems: No - MUSCULOSKELETAL/RHEUMATOLOGICAL Hx Musculoskeletal Disorders: No - GASTROINTESTINAL Hx Gastrointestinal Disorders: No - GENITOURINARY/GYNECOLOGICAL Hx Genitourinary Disorders: No - PSYCHIATRIC Hx Psychophysiologic Disorder: No Hx Depression: No Hx Emotional Abuse: No Hx Physical Abuse: No Hx Substance Use: No - SURGICAL HISTORY Other/Comment: C Section - ANESTHESIA Hx Anesthesia: No Hx Anesthesia Reactions: No Hx Malignant Hyperthermia: No Meds Allergies/Adverse Reactions: Allergies Allergy/AdvReac Type Severity Reaction Status Date / Time No Known Allergies Allergy Verified 11/17/16 15:46 - Medications Medications: Current Medications Acetaminophen (Tylenol 325mg Tab) 650 mg PO Q6H PRN PRN Reason: Fever >100.4 F Hydromorphone HCl (Dilaudid) 1 mg IVP Q4H PRN PRN Reason: Pain, moderate (4-7) Dextrose/Sodium Chloride (Dextrose 5%/0.45% Ns 1000 Ml) 1,000 mls @ 100 mls/hr IV .Q10[facility] Last Admin: 05/26/17 22:49 Dose: 100 mls/hr Metronidazole (Flagyl) 250 mg in 50 mls @ 100 mls/hr IV Q8 [facility] PRN Reason: Protocol Stop: 06/01/17 06:01 Ceftriaxone Sodium (Rocephin 1 Gram Ivpb) 1 gm in 100 mls @ 100 mls/hr IVPB DAILY [facility] PRN Reason: Protocol Ondansetron HCl (Zofran Inj) 4 mg IVP Q6H PRN PRN Reason: Nausea/Vomiting Pantoprazole Sodium (Protonix Inj) 40 mg IVP DAILY [facility] Physical Exam - Constitutional Appears: Non-toxic, No Acute Distress - Head Exam Head Exam: ATRAUMATIC, NORMAL INSPECTION - Eye Exam Eye Exam: EOMI, Normal appearance - ENT Exam ENT Exam: Mucous Membranes Moist - Respiratory Exam Respiratory Exam: NORMAL BREATHING PATTERN. absent: Respiratory Distress - Cardiovascular Exam Cardiovascular Exam: +S1, +S2. absent: Tachycardia - GI/Abdominal Exam GI & Abdominal Exam: Hernia (umbilical hernia), Soft, Tenderness (tender in RLQ and suprapubic). absent: Distended, Firm, Guarding, Rebound, Rigid Additional comments: + Rovsing sign scar healing well - Neurological Exam Neurological exam: Alert, CN II-XII Intact, Oriented x3 - Psychiatric Exam Psychiatric exam: Normal Affect, Normal Mood - Skin Skin Exam: Dry, Normal Color, Warm Results - Vital Signs Recent Vital Signs: Last Vital Signs Temp 98.9 F 05/26/17 22:23 Pulse 57 L 05/26/17 22:21 Resp 18 05/26/17 22:21 BP 125/56 L 05/26/17 22:21 Pulse Ox 100 05/26/17 22:21 - Labs Result Diagrams: 05/26/17 19:15 05/26/17 21:00 Assessment & Plan - Assessment and Plan (Free Text) Assessment: 21yo F with PMHx of asthma and 3 weeks presents with abdominal pain and vomiting and found to have appendicitis - Afebrile, VSS - No leukocytosis - CT: appendix dilated to 14mm and fluid filled. Appendicolith. Fat containing umbilical hernia - OR tomorrow morning at 8:30 for laparoscopic appendectomy - Procedure and risks discussed with patient, all questions were answered and written consent was obtained - NPO, IV fluids - IV antibiotics - Zofran and Morphine PRN - Discussed plan with Dr. Tyler Jenkins PGY-3 <Vishnu Scott - Last Filed: 05/27/17 10:37> Meds - Medications Medications: Current Medications Acetaminophen (Tylenol 325mg Tab) 650 mg PO Q6H PRN PRN Reason: Fever >100.4 F Hydromorphone HCl (Dilaudid) 1 mg IVP Q4H PRN PRN Reason: Pain, moderate (4-7) Last Admin: 05/27/17 08:14 Dose: 1 mg Hydromorphone HCl (Dilaudid) 0.5 mg IVP Q15M PRN PRN Reason: Pain, moderate (4-7) Stop: 05/27/17 12:32 Dextrose/Sodium Chloride (Dextrose 5%/0.45% Ns 1000 Ml) 1,000 mls @ 100 mls/hr IV .Q10H [facility] Last Admin: 05/26/17 22:49 Dose: 100 mls/hr Metronidazole (Flagyl) 250 mg in 50 mls @ 100 mls/hr IV Q8 [facility] PRN Reason: Protocol Stop: 06/01/17 06:01 Last Admin: 05/27/17 06:50 Dose: 100 mls/hr Ceftriaxone Sodium (Rocephin 1 Gram Ivpb) 1 gm in 100 mls @ 100 mls/hr IVPB DAILY [facility] PRN Reason: Protocol Lactated Ringer's (Lactated Ringer's) 1,000 mls @ 75 mls/hr IV .[id number] [facility] Stop: 05/27/17 12:46 Morphine Sulfate (Morphine) 2 mg IVP Q4 PRN PRN Reason: Pain, Mild (1-3) Last Admin: 05/27/17 05:15 Dose: 2 mg Ondansetron HCl (Zofran Inj) 4 mg IVP Q6H PRN PRN Reason: Nausea/Vomiting Last Admin: 05/27/17 07:40 Dose: 4 mg Pantoprazole Sodium (Protonix Inj) 40 mg IVP DAILY [facility] Results - Vital Signs Recent Vital Signs: Last Vital Signs Temp 99.1 F 05/27/17 09:20 Pulse 64 05/27/17 09:20 Resp 20 05/27/17 09:20 BP 136/72 05/27/17 09:20 Pulse Ox 100 05/27/17 09:20 - Labs Result Diagrams: 05/27/17 06:45 05/27/17 06:45 Labs: Laboratory Results - last 24 hr 05/27/17 05/27/17 05/27/17 06:45 06:45 07:00 WBC 12.6 H RBC 4.31 Hgb 12.2 Hct 38.2 MCV 88.6 MCH 28.3 MCHC 31.9 RDW 15.3 H Plt Count 324 MPV 10.5 Gran % 79.8 H Lymph % (Auto) 15.5 L Preston % (Auto) 4.1 Eos % (Auto) 0.4 L Baso % (Auto) 0.2 Gran # 10.01 H Lymph # 2.0 Preston # 0.5 Eos # 0.1 Baso # 0.02 Sodium 142 Potassium 3.3 L Chloride 107 Carbon Dioxide 21 Anion Gap 17 BUN 6 L Creatinine 0.8 Est GFR ( Amer) > 60 Est GFR (Non-Af Amer) > 60 Random Glucose 90 Calcium 9.1 Total Bilirubin 0.5 AST 25 ALT 28 Alkaline Phosphatase 151 H Total Protein 7.5 Albumin 4.0 Globulin 3.5 Albumin/Globulin Ratio 1.2 Blood Type O POSITIVE Antibody Screen Negative BBK History Checked Patient has bt Assessment & Plan - Assessment and Plan (Free Text) Assessment: Patient seen and examined by me. Agree with assessment and and plan as per resident's note. - Date & Time Date: 05/26/17 Time: 20:50
[2017-05-27] MEDS: Morphine 2 mg/ml ISec IVP PRN ×3 (01:03→18:26)
[2017-05-27] MEDS: HYDROmorphone 1 mg/ml ISec IVP PRN ×3 (02:21→22:28)
[2017-05-27] MEDS: metroNIDAZOLE IV 250mg/50 ml 250 MG/50 ML BAG IV SCH ×3 (06:50→22:24)
[2017-05-27 07:24] LABS: BASO # 0.02 K/mm3 (0.0-2.0); BASO % 0.2 % (0.0-3.0); EOS # 0.1 (0.0-0.7); EOS % 0.4 % (1.5-5.0); GRAN # 10.01 (1.4-6.5); GRAN % 79.8 % (50.0-68.0); HEMATOCRIT 38.2 % (36.0-48.0); LYMPH % 15.5 % (22.0-35.0); MEAN CELL VOLUME 88.6 fl (80.0-105.0); MEAN CORPUSCULAR HEMOGLOBIN 28.3 pg (25.0-35.0); MEAN CORPUSCULAR HGB CONC 31.9 g/dl (31.0-37.0); MEAN PLATELET VOLUME 10.5 fl (7.0-11.0); MONO # 0.5 (0.1-0.6); MONO % 4.1 % (1.0-6.0); RED CELL DISTRIBUTION WIDTH 15.3 % (11.5-14.5); WHITE BLOOD COUNT 12.6 10^3/ul (4.5-11.0)
[2017-05-27 07:40] LABS: ALB/GLOB RATIO 1.2 (1.1-1.8); ALKALINE PHOSPHATASE 151 U/L (38-126); ALT/SGPT 28 U/L (7-56); AST/SGOT 25 U/L (14-36); BILIRUBIN,TOTAL 0.5 mg/dL (0.2-1.3); BLOOD UREA NITROGEN 6 mg/dL (7-21); CALCIUM 9.1 mg/dL (8.4-10.5); CARBON DIOXIDE 21 mmol/L (21-33); CHLORIDE 107 mmol/L (98-107); GFR AFRICAN-AMERICAN > 60; GLUCOSE,RANDOM 90 mg/dL (70-110); POTASSIUM 3.3 mmol/L (3.6-5.0); SODIUM 142 mmol/L (132-148); TOTAL PROTEIN 7.5 g/dL (5.8-8.3)
[2017-05-27] MEDS ORDERED: Potassium Chloride 20 mEq ER Tab PO ONE (07:58)
[2017-05-27] MEDS ORDERED: Midazolam 2 MG/2 ML VIAL ONE (08:58)
[2017-05-27] MEDS ORDERED: Propofol 10 mg/ml Inj (20 ML) ONE (08:58)
[2017-05-27] MEDS ORDERED: Lidocaine 2% Inj (20ml) ONE (08:59)
[2017-05-27] MEDS ORDERED: Bupivacaine 0.5% Inj(30mL) ONE (09:06)
[2017-05-27] MEDS ORDERED: Rocuronium 10 mg/ml (5 ml) ONE (09:07)
--- NOTE | 2017-05-27 09:15 | RAD ---
HISTORY: pre op COMPARISON: 01/01/2015 FINDINGS: LUNGS: No active pulmonary disease. PLEURA: No significant pleural effusion identified, no pneumothorax apparent. CARDIOVASCULAR: Normal. OSSEOUS STRUCTURES: No significant abnormalities. VISUALIZED UPPER ABDOMEN: Normal. OTHER FINDINGS: None. IMPRESSION: No active disease.
[2017-05-27] MEDS ORDERED: Neostigmine Methylsulfate 3mg/3ml Syringe IV ONE (10:01)
[2017-05-27] MEDS ORDERED: Glycopyrrolate 0.2 mg/ml (2ml vial) ONE (10:03)
[2017-05-27] MEDS ORDERED: HYDROmorphone 0.5 mg/0.5 ml ISec IVP PRN (10:32)
--- NOTE | 2017-05-27 10:33 | PCM.SURG1 ---
Surgeon's Initial Post Op Note - Surgeon's Notes Surgeon: Dr. Scott Elderly Sitter: Adrianne PGY1 Type of Anesthesia: General Endo Anesthesia Administered By: Dr. Atwood Pre-Operative Diagnosis: Acute appendicitis Operative Findings: see operative report Post-Operative Diagnosis: Acute appendicitis Operation Performed: Laparoscopic Appendectomy Specimen/Specimens Removed: Appendix Estimated Blood Loss: EBL {In ML}: 5 Blood Products Given: N/A Drains Used: No Drains Post-Op Condition: Good Date of Surgery/Procedure: 05/27/17 Time of Surgery/Procedure: 09:00
[2017-05-27] MEDS ORDERED: Lactated Ringer's 1,000 ML IV SCH (10:45)
[2017-05-27] MEDS: Lactated Ringer's 1,000 ML IV SCH ×2 (12:43→21:52)
[2017-05-27] MEDS: cefTRIAXone 1 gm 1 GM/100 ML BAG IVPB SCH (16:33)
--- NOTE | 2017-05-27 17:04 | CARD ---
APPROVED REPORT EKG Measurement Heart [id number] <Conclusion> Normal sinus rhythm with sinus arrhythmia T wave abnormality, consider anterolateral ischemia Abnormal ECG
--- NOTE | 2017-05-27 21:16 | OP ---
PROCEDURE DATE: 05/27/2017 PREOPERATIVE DIAGNOSIS: Acute appendicitis. POSTOPERATIVE DIAGNOSIS: Acute appendicitis. PROCEDURE PERFORMED: Laparoscopic appendectomy. SURGEON: Vishnu Scott MD ASSISTANTS: Dr. Silver. TYPE OF ANESTHESIA: General endotracheal anesthesia. ANESTHESIA ADMINISTERED BY: Etienne Atwood DO ESTIMATED BLOOD LOSS: Minimal. SPECIMEN: Acutely inflamed appendix. DESCRIPTION OF PROCEDURE: The patient is a 21-year-old female who is 3 weeks, status post delivery of a health baby who developed periumbilical pain radiating to the right lower quadrant last night and who was given antibiotics, IV hydration, and scheduled for laparoscopic appendectomy this morning. The patient was brought to the operating room and placed on the operating room table in supine position. The patient was connected to the EKG, blood pressure, and pulse oximetry monitors. The patient then underwent general endotracheal anesthesia and was prepped and draped in the usual sterile fashion. First, standard time-out procedure took place and everybody in the room agreed as to the patient's identity, diagnosis, and procedure to be performed. Using 2 towel clips, the anterior abdominal wall was elevated and Veress needle was inserted through a small incision superior to the umbilicus. Once pneumoperitoneum was obtained, a 12-mm trocar was inserted through the incision and careful evaluation of abdominal cavity revealed the presence of thick and elongated appendix with some paul-appendiceal induration. I then placed a second 10-mm trocar in the suprapubic position under direct visualization. Once both trocars were in place dissection took place where we elevated the appendix to the mesoappendix with harmonic scalpel down to the base of the appendix, cleared base of appendix, and employed Endo [place] stapler in order to amputate the appendix at its base. Once this was done, the appendix was placed in Endo catch bag, removed through the periumbilical incision. The abdominal cavity was then copiously irrigated and all the irrigant fluid was suctioned out. The pneumoperitoneum was released after the trocars were checked for bleeding and there was none. The trocars were removed. The wounds were closed using 0-Vicryl for the fascia, 3-0 Vicryl for subcutaneous tissue, and 4-0 Monocryl for the skin. A sterile Dermabond dressing was applied to the wounds. The patient tolerated the procedure well and there were no complications. The patient was awakened and transferred to the recovery room for further observation. Vishnu Scott MD MTDAdriel
[2017-05-28] MEDS: Lactated Ringer's 1,000 ML IV SCH ×2 (00:39→06:35)
--- NOTE | 2017-05-28 02:03 | HP ---
HISTORY OF PRESENT ILLNESS: The patient is a 21-year-old, came to emergency room because of right lower quadrant pain associated with nausea and vomiting. She states pain was 10/10. She recently gave to baby 3 weeks ago. The patient does have history of gestational diabetes and asthma. ALLERGIES: SHE IS NOT ALLERGIC TO ANY MEDICATIONS. MEDICATIONS AT HOME: She is on multivitamins, Keflex and nebulizer treatments. SOCIAL HISTORY: She is single, lives with her mother. Denies smoking, drinking, or alcohol use. Only socially drinks. REVIEW OF SYSTEMS: Significant for abdominal discomfort. PHYSICAL EXAMINATION GENERAL: She is awake, alert, oriented, and communicative. VITAL SIGNS: She is afebrile, pulse 78, respirations 19, blood pressure 128/70. LUNGS: Bilateral fair airflow. No rhonchi or crackle. HEART: S1 and S2 audible. ABDOMEN: Soft. Slight palpable discomfort in umbilical area. NEUROLOGIC: She is awake, alert, oriented, and communicative. LABORATORY DATA: WBC is 12.6, hemoglobin 12, hematocrit 38, platelets 324. Chemistry: Sodium 142, potassium 3.3, chloride 107, CO2 of 21, BUN 6, creatinine 0.8, blood sugar of 90. ASSESSMENT: 1. Acute appendicitis. 2. Status post appendectomy this morning. 3. Hypokalemia. 4. . PLAN: We will continue the patient on current medications. Discharge plan as per surgical team. Lane Marte MD
[2017-05-28] MEDS: HYDROmorphone 1 mg/ml ISec IVP PRN (05:03)
[2017-05-28] MEDS: metroNIDAZOLE IV 250mg/50 ml 250 MG/50 ML BAG IV SCH (06:27)
[2017-05-28 09:12] VITALS: BP 124/84; PULSE 76; RESP 20; TEMP 99.1; O2SAT 95
--- NOTE | 2017-05-28 09:18 | CP.PCM.PN ---
Subjective - Date & Time of Evaluation Date of Evaluation: 05/28/17 Time of Evaluation: 07:00 - Subjective Subjective: Patient seen and examined at bedside. No acute events reported overnight. Patient denies chest pain, shortness of breath, abdominal pain, nausea, vomiting , fever, chills, diarrhea, constipation. Patient requesting information regarding pain medication and breast feeding. Instructions were given and patient was in understanding and agreement. Objective - Vital Signs/Intake and Output Vital Signs (last 24 hours): Temp Pulse Resp BP Pulse Ox 99.1 F 76 20 124/84 95 05/28/17 08:00 05/28/17 08:00 05/28/17 08:00 05/28/17 08:00 05/28/17 08:00 Intake and Output: 05/28/17 05/28/17 06:59 18:59 Intake Total 240 Balance 240 - Medications Medications: Current Medications Acetaminophen (Tylenol 325mg Tab) 650 mg PO Q6H PRN PRN Reason: Fever >100.4 F Hydromorphone HCl (Dilaudid) 1 mg IVP Q4H PRN PRN Reason: Pain, moderate (4-7) Last Admin: 05/28/17 05:03 Dose: 1 mg Metronidazole (Flagyl) 250 mg in 50 mls @ 100 mls/hr IV Q8 [facility] PRN Reason: Protocol Stop: 06/01/17 06:01 Last Admin: 05/28/17 06:27 Dose: 100 mls/hr Ceftriaxone Sodium (Rocephin 1 Gram Ivpb) 1 gm in 100 mls @ 100 mls/hr IVPB DAILY [facility] PRN Reason: Protocol Last Admin: 05/27/17 16:33 Dose: 100 mls/hr Morphine Sulfate (Morphine) 2 mg IVP Q4 PRN PRN Reason: Pain, Mild (1-3) Last Admin: 05/27/17 18:26 Dose: 2 mg Ondansetron HCl (Zofran Inj) 4 mg IVP Q6H PRN PRN Reason: Nausea/Vomiting Last Admin: 05/27/17 07:40 Dose: 4 mg Pantoprazole Sodium (Protonix Inj) 40 mg IVP DAILY [facility] Last Admin: 05/27/17 12:42 Dose: 40 mg - Labs Labs: 05/27/17 06:45 12/17/17 06:45 PT 12.2 SECONDS (9.4-12.5) 05/26/17 19:15 INR 1.12 (0.93-1.08) H 05/26/17 19:15 APTT 30.3 Seconds (25.1-36.5) 05/26/17 19:15 - Head Exam Head Exam: ATRAUMATIC, NORMAL INSPECTION, NORMOCEPHALIC - Eye Exam Eye Exam: EOMI, PERRL - ENT Exam ENT Exam: Mucous Membranes Moist, Normal Exam - Cardiovascular Exam Cardiovascular Exam: REGULAR RHYTHM, +S1, +S2 - GI/Abdominal Exam GI & Abdominal Exam: Soft Additional comments: scar healing appropriately Appendectomy scar healing appropriately - Extremities Exam Extremities Exam: Normal Capillary Refill. absent: Calf Tenderness - Back Exam Back Exam: absent: CVA tenderness (L), CVA tenderness (R) - Neurological Exam Neurological Exam: Alert, Awake, CN II-XII Intact, Normal Gait, Oriented x3 - Psychiatric Exam Psychiatric exam: Normal Affect, Normal Mood - Skin Skin Exam: Dry, Intact. absent: Rash Assessment and Plan (1) Acute appendicitis Status: Resolved - Assessment and Plan (Free Text) Assessment: 21yo F with PMHx of asthma and 3 weeks presented with abdominal pain and vomiting and found to have appendicitis. Patient is POD#1 s/p laproscopic appendectomy Plan: - Afebrile, VSS - CT abdomen/pelvis: appendix dilated to 14mm and fluid filled. Appendicolith. Fat containing umbilical hernia - s/p laparoscopic appendectomy, POD#0 - Zofran prn - wound care and pain management upon dc discussed - Will discuss plan with Dr. Tyler Boyle PGY-1
--- NOTE | 2017-05-28 09:40 | CP.PCM.DIS ---
<Melva Alarcon - Last Filed: 05/28/17 10:05> Provider - Provider Date of Admission: 05/26/17 22:44 Attending physician: Madi Rios MD Primary care physician: NO PRIMARY CARE PROVIDER Time Spent in preparation of Discharge (in minutes): 30 Diagnosis - Discharge Diagnosis (1) Acute appendicitis Status: Acute Hospital Course - Lab Results Lab Results: Micro Results 05/27/17 00:36 Blood Blood Culture - Preliminary NO GROWTH AFTER 24 HOURS 05/26/17 23:50 Blood Blood Culture - Preliminary NO GROWTH AFTER 24 HOURS Most Recent Lab Values WBC 12.6 10^3/ul (4.5-11.0) H 05/27/17 06:45 RBC 4.31 10^6/uL (3.5-6.1) 05/27/17 06:45 Hgb 12.2 g/dL (12.0-16.0) 05/27/17 06:45 Hct 38.2 % (36.0-48.0) 05/27/17 06:45 MCV 88.6 fl (80.0-105.0) 05/27/17 06:45 MCH 28.3 pg (25.0-35.0) 05/27/17 06:45 MCHC 31.9 g/dl (31.0-37.0) 05/27/17 06:45 RDW 15.3 % (11.5-14.5) H 05/27/17 06:45 Plt Count 324 10^3/uL (120.0-450.0) 05/27/17 06:45 MPV 10.5 fl (7.0-11.0) 05/27/17 06:45 Gran % 79.8 % (50.0-68.0) H 05/27/17 06:45 Lymph % (Auto) 15.5 % (22.0-35.0) L 05/27/17 06:45 [place] % (Auto) 4.1 % (1.0-6.0) 05/27/17 06:45 Eos % (Auto) 0.4 % (1.5-5.0) L 05/27/17 06:45 Baso % (Auto) 0.2 % (0.0-3.0) 05/27/17 06:45 Gran # 10.01 (1.4-6.5) H 05/27/17 06:45 Lymph # 2.0 (1.2-3.4) 05/27/17 06:45 [place] # 0.5 (0.1-0.6) 05/27/17 06:45 Eos # 0.1 (0.0-0.7) 05/27/17 06:45 Baso # 0.02 K/mm3 (0.0-2.0) 05/27/17 06:45 PT 12.2 SECONDS (9.4-12.5) 05/26/17 19:15 INR 1.12 (0.93-1.08) H 05/26/17 19:15 APTT 30.3 Seconds (25.1-36.5) 05/26/17 19:15 Sodium 142 mmol/L (132-148) 05/27/17 06:45 Potassium 3.3 mmol/L (3.6-5.0) L 05/27/17 06:45 Chloride 107 mmol/L (98-107) 05/27/17 06:45 Carbon Dioxide 21 mmol/L (21-33) 05/27/17 06:45 Anion Gap 17 (10-20) 05/27/17 06:45 BUN 6 mg/dL (7-21) L 05/27/17 06:45 Creatinine 0.8 mg/dl (0.7-1.2) 05/27/17 06:45 Est GFR ( Amer) > 60 05/27/17 06:45 Est GFR (Non-Af Amer) > 60 05/27/17 06:45 Random Glucose 90 mg/dL (70-110) 05/27/17 06:45 Calcium 9.1 mg/dL (8.4-10.5) 05/27/17 06:45 Total Bilirubin 0.5 mg/dL (0.2-1.3) 05/27/17 06:45 AST 25 U/L (14-36) 05/27/17 06:45 ALT 28 U/L (7-56) 05/27/17 06:45 Alkaline Phosphatase 151 U/L (38-126) H 05/27/17 06:45 Total Protein 7.5 g/dL (5.8-8.3) 05/27/17 06:45 Albumin 4.0 g/dL (3.0-4.8) 05/27/17 06:45 Globulin 3.5 gm/dL 05/27/17 06:45 Albumin/Globulin Ratio 1.2 (1.1-1.8) 05/27/17 06:45 Lipase 56 U/L (23-300) 05/26/17 21:00 Urine Color Yellow (YELLOW) 05/26/17 19:15 Urine Appearance Sl cloudy (CLEAR) 05/26/17 19:15 Urine pH 6.0 (4.7-8.0) 05/26/17 19:15 Ur Specific [place] 1.020 (1.005-1.035) 05/26/17 19:15 Urine Protein 30 mg/dL (<30 mg/dL) H 05/26/17 19:15 Urine Glucose (UA) Negative mg/dL (NEGATIVE) 05/26/17 19:15 Urine Ketones Negative mg/dL (NEGATIVE) 05/26/17 19:15 Urine Blood Large (NEGATIVE) H 05/26/17 19:15 Urine Nitrate Negative (NEGATIVE) 05/26/17 19:15 Urine Bilirubin Negative (NEGATIVE) 05/26/17 19:15 Urine Urobilinogen 0.2 E.U./dL (<1 E.U./dL) 05/26/17 19:15 Ur Leukocyte Esterase Trace Elizabeth/uL (NEGATIVE) H 05/26/17 19:15 Urine RBC Tntc /hpf (0-2) 05/26/17 19:15 Urine WBC 5 - 10 /hpf (0-6) 05/26/17 19:15 Ur Epithelial Cells 4 - 5 /hpf (0-5) 05/26/17 19:15 Urine Bacteria Mod (NEG) 05/26/17 19:15 Blood Type O POSITIVE 05/27/17 07:00 Antibody Screen Negative 05/27/17 07:00 BBK History Checked Patient has bt 05/27/17 07:00 - Hospital Course Hospital Course: PGY-[address] Rios 21yo F with PMHx of asthma, gestational diabetes, and 3 weeks s/p C- section presents to the ED on 05/26 with abdominal pain and vomiting. She had vomited about 6 times including in the ED. The pain was located in the periumbilical area but then moved to the RLQ. Her pain was controlled by toradol in the hospital. CT of A/P without contrast showed appendix dilated to 14mm and fluid filled, (+) Appendicolith, (+) Fat containing umbilical hernia. She had an laparoscopic appendectomy on 05/[address] Diaz. Today is POD# 1. Pt Temp is 99.1, and vital sign stable. Pt denies fever, chill. Pt states that abdominal pain improves and is elicited upon palpation from the surgical site. Pt is able to ambulate and tolerate diet. Pt is medically stable and will be discharged home. Surgery team has provided instructions re: wound care, pain managment, and antibiotics. Pt is to follow up with surgery, obgyn, and the primary care doctor within 1-2 weeks. Keflex and Ultram will be secreted through breast milk. Advised patient do not breast feed while on this antibiotics and pain medicine. Pt states that she will use the pre-stored breast milk. Advise pt to call drafter (cad) electronic for any questions or if formula needed to be supplemented. Discharge Exam - Head Exam Head Exam: ATRAUMATIC, NORMAL INSPECTION, NORMOCEPHALIC - Eye Exam Eye Exam: EOMI, Normal appearance, PERRL. absent: Scleral icterus Pupil Exam: NORMAL ACCOMODATION - ENT Exam ENT Exam: Mucous Membranes Moist - Neck Exam Additional comments: supple - Respiratory Exam Respiratory Exam: NORMAL BREATHING PATTERN. absent: Rales, Rhonchi, Wheezes - Cardiovascular Exam Cardiovascular Exam: REGULAR RHYTHM, +S1, +S2 - GI/Abdominal Exam GI & Abdominal Exam: Normal Bowel Sounds, Soft, Tenderness. absent: Rigid Additional comments: umbilical hernia scar healing well Tenderness upon palpation in RLQ and suprapubic - Extremities Exam Extremities exam: pedal pulses present - Back Exam Back exam: absent: CVA tenderness (L), CVA tenderness (R) - Neurological Exam Neurological exam: Alert, Oriented x3 - Psychiatric Exam Psychiatric exam: Normal Affect, Normal Mood - Skin Skin Exam: Dry, Intact, Warm Discharge Plan - Discharge Medications Prescriptions: traMADol [Ultram] 50 mg PO Q6 PRN #15 tab PRN Reason: Pain, Moderate (4-7) - Follow Up Plan Condition: STABLE Disposition: HOME/ ROUTINE Instructions: Appendicitis (DC), Pneumococcal Vaccine for Adults (DC), Laparoscopic Appendectomy (DC), Influenza Vaccine (DC), Regular Diet (DC) Additional Instructions: Follow up with Dr. Scott in his office in one to two weeks upon discharge Keflex and Ultram will be secreted through breast milk. Advised patient do not breast feed while on this antibiotics and pain medicine. Pt states that she will use the pre-stored breast milk. Advise pt to call drafter (cad) electronic for any questions or if formula needed to be supplemented. Referrals: Vishnu Scott MD [Staff Provider] - Madi Rios MD [Staff Provider] - <Madi Rios - Last Filed: 05/28/17 18:59> Provider - Provider Date of Admission: 05/26/17 22:44 Attending physician: Madi Rios MD Primary care physician: NO PRIMARY CARE PROVIDER Hospital Course - Lab Results Lab Results: Micro Results 05/27/17 00:36 Blood Blood Culture - Preliminary NO GROWTH AFTER 24 HOURS 05/26/17 23:50 Blood Blood Culture - Preliminary NO GROWTH AFTER 24 HOURS Most Recent Lab Values WBC 12.6 10^3/ul (4.5-11.0) H 05/27/17 06:45 RBC 4.31 10^6/uL (3.5-6.1) 05/27/17 06:45 Hgb 12.2 g/dL (12.0-16.0) 05/27/17 06:45 Hct 38.2 % (36.0-48.0) 05/27/17 06:45 MCV 88.6 fl (80.0-105.0) 05/27/17 06:45 MCH 28.3 pg (25.0-35.0) 05/27/17 06:45 MCHC 31.9 g/dl (31.0-37.0) 05/27/17 06:45 RDW 15.3 % (11.5-14.5) H 05/27/17 06:45 Plt Count 324 10^3/uL (120.0-450.0) 05/27/17 06:45 MPV 10.5 fl (7.0-11.0) 05/27/17 06:45 Gran % 79.8 % (50.0-68.0) H 05/27/17 06:45 Lymph % (Auto) 15.5 % (22.0-35.0) L 05/27/17 06:45 [place] % (Auto) 4.1 % (1.0-6.0) 05/27/17 06:45 Eos % (Auto) 0.4 % (1.5-5.0) L 05/27/17 06:45 Baso % (Auto) 0.2 % (0.0-3.0) 05/27/17 06:45 Gran # 10.01 (1.4-6.5) H 05/27/17 06:45 Lymph # 2.0 (1.2-3.4) 05/27/17 06:45 [place] # 0.5 (0.1-0.6) 05/27/17 06:45 Eos # 0.1 (0.0-0.7) 05/27/17 06:45 Baso # 0.02 K/mm3 (0.0-2.0) 05/27/17 06:45 PT 12.2 SECONDS (9.4-12.5) 05/26/17 19:15 INR 1.12 (0.93-1.08) H 05/26/17 19:15 APTT 30.3 Seconds (25.1-36.5) 05/26/17 19:15 Sodium 142 mmol/L (132-148) 05/27/17 06:45 Potassium 3.3 mmol/L (3.6-5.0) L 05/27/17 06:45 Chloride 107 mmol/L (98-107) 05/27/17 06:45 Carbon Dioxide 21 mmol/L (21-33) 05/27/17 06:45 Anion Gap 17 (10-20) 05/27/17 06:45 BUN 6 mg/dL (7-21) L 05/27/17 06:45 Creatinine 0.8 mg/dl (0.7-1.2) 05/27/17 06:45 Est GFR ( Amer) > 60 05/27/17 06:45 Est GFR (Non-Af Amer) > 60 05/27/17 06:45 Random Glucose 90 mg/dL (70-110) 05/27/17 06:45 Calcium 9.1 mg/dL (8.4-10.5) 05/27/17 06:45 Total Bilirubin 0.5 mg/dL (0.2-1.3) 05/27/17 06:45 AST 25 U/L (14-36) 05/27/17 06:45 ALT 28 U/L (7-56) 05/27/17 06:45 Alkaline Phosphatase 151 U/L (38-126) H 05/27/17 06:45 Total Protein 7.5 g/dL (5.8-8.3) 05/27/17 06:45 Albumin 4.0 g/dL (3.0-4.8) 05/27/17 06:45 Globulin 3.5 gm/dL 05/27/17 06:45 Albumin/Globulin Ratio 1.2 (1.1-1.8) 05/27/17 06:45 Lipase 56 U/L (23-300) 05/26/17 21:00 Urine Color Yellow (YELLOW) 05/26/17 19:15 Urine Appearance Sl cloudy (CLEAR) 05/26/17 19:15 Urine pH 6.0 (4.7-8.0) 05/26/17 19:15 Ur Specific [place] 1.020 (1.005-1.035) 05/26/17 19:15 Urine Protein 30 mg/dL (<30 mg/dL) H 05/26/17 19:15 Urine Glucose (UA) Negative mg/dL (NEGATIVE) 05/26/17 19:15 Urine Ketones Negative mg/dL (NEGATIVE) 05/26/17 19:15 Urine Blood Large (NEGATIVE) H 05/26/17 19:15 Urine Nitrate Negative (NEGATIVE) 05/26/17 19:15 Urine Bilirubin Negative (NEGATIVE) 05/26/17 19:15 Urine Urobilinogen 0.2 E.U./dL (<1 E.U./dL) 05/26/17 19:15 Ur Leukocyte Esterase Trace Elizabeth/uL (NEGATIVE) H 05/26/17 19:15 Urine RBC Tntc /hpf (0-2) 05/26/17 19:15 Urine WBC 5 - 10 /hpf (0-6) 05/26/17 19:15 Ur Epithelial Cells 4 - 5 /hpf (0-5) 05/26/17 19:15 Urine Bacteria Mod (NEG) 05/26/17 19:15 Blood Type O POSITIVE 05/27/17 07:00 Antibody Screen Negative 05/27/17 07:00 BBK History Checked Patient has bt 05/27/17 07:00 - Hospital Course Hospital Course: Pt seen and examined.Pain under control. Pt is able to tolerate PO diet. Pt's labs and vitals have been reviewed. I agree with the adjunct faculty for medical terminology note. She will f/u with me in 2-3 weeks. She will also see the surgeon.
[2017-05-28] MEDS: cefTRIAXone 1 gm 1 GM/100 ML BAG IVPB SCH (10:11)
== END 2017-05-28 12:48 | disposition home or self-care (01) | DRG 343 ==
LOC: ED 17:41 → ERH 22:44 → 5RNO 05-27 00:42
PROVIDERS: ADMIT Internal Medicine Nephrology; ATTEND Internal Medicine Nephrology
PROC: 0DTJ4ZZ Resection of Appendix, Percutaneous Endoscopic Approach (ICD-10-PCS; principal; 2017-05-27 08:55)
DX: K35.80 Unspecified acute appendicitis (principal); O99.63 Diseases of the digestive system complicating the puerperium; K42.9 Umbilical hernia without obstruction or gangrene; E87.6 Hypokalemia; J45.909 Unspecified asthma, uncomplicated; Z86.32 Personal history of gestational diabetes

== ENCOUNTER 2017-07-02 10:55 | Emergency (ER) | payer BC, OTHER ==
[2017-07-02 10:55] VITALS: BMI 37.8
[2017-07-02 11:37] VITALS: TEMP 98.3
--- NOTE | 2017-07-02 12:08 | ED PDOC ---
Arrival/HPI - General Chief Complaint: GI Problem Time Seen by Provider: 07/02/17 11:17 Historian: Patient - History of Present Illness Narrative History of Present Illness (Text): CC: blood with bowel movements and "boil" on suprapubic area 21yo F with PMHx of asthma presents with rectal bleeding. Patient states she first noticed it after passing a hard stool about a week ago and has had blood in stool after bowel movements ever since. Patient admits to being sexually active, denies any anal penetration, sexual assault or trauma. Admits to headache, fever, chills, nausea, vomiting, abdominal pain. Patient states she normally has bowel movement every other day. Patient denies fatigue, weakness, numbness, tingling. Patient noticed the boil a couple of days ago, admits to history of shaving in the region. Patient states it wasn't getting better. PMHx: asthma, gestational diabetes Surgeries: , Appendectomy 05/28/2017 Allergies: none Family history: no Colon CA Social history: occasional etoh, denies tobacco or illicit drug use, sexually active PMD: Dr. Wayne 07/02/17 13:08 Time/Duration: < week Symptom Onset: Sudden Context: Other (with bowel movements, GI bleed) Past Medical History - Provider Review Nursing Documentation Reviewed: Yes - Travel History Have you recently traveled outside [place] w/in the past 3 mons?: No - Past History Past History: Non-Contributing - Infectious Disease Hx of Infectious Diseases: None - Tetanus Immunization Tetanus Immunization: Up to Date - Reproductive Menopause: No - Cardiac Hx Cardiac Disorders: No - Pulmonary Hx Respiratory Disorders: Yes Hx Asthma: Yes - Neurological Hx Neurological Disorder: No - HEENT Hx HEENT Disorder: No - Renal Hx Renal Disorder: No - Endocrine/Metabolic Hx Endocrine Disorders: No - Hematological/Oncological Hx Blood Transfusions: No Hx Blood Transfusion Reaction: No - Integumentary Hx Dermatological Disorder: No - Musculoskeletal/Rheumatological Hx Musculoskeletal Disorders: No - Gastrointestinal Hx Gastrointestinal Disorders: No - Genitourinary/Gynecological Hx Genitourinary Disorders: No - Psychiatric Hx Psychophysiologic Disorder: No Hx Depression: No Hx Emotional Abuse: No Hx Physical Abuse: No Hx Substance Use: No - Past Surgical History Past Surgical History: No Previous - Surgical History Hx Appendectomy: Yes Hx Section: Yes - Anesthesia Hx Anesthesia Reactions: No Hx Malignant Hyperthermia: No - Suicidal Assessment Feels Threatened In Home Enviroment: No Family/Social History - Physician Review Nursing Documentation Reviewed: Yes Family/Social History: Unknown Family HX Smoking Status: Never Smoked Hx Alcohol Use: Yes Hx Substance Use: No Substance used: Marijuana Hx Substance Use Treatment: No Allergies/Home Meds Allergies/Adverse Reactions: Allergies No Known Allergies Allergy (Verified 11/17/16 15:46) Review of Systems - Physician Review All systems were reviewed & negative as marked: Yes - Review of Systems Constitutional: Normal Eyes: Normal. absent: Vision Changes, Photophobia, Eye Pain ENT: Normal. absent: Hearing Changes, Tinnitus, TMJ Pain Respiratory: absent: SOB, Cough, Sputum, Wheezing Cardiovascular: absent: Chest Pain, Palpitations, Edema, Calf Pain, Orthopnea, Syncope Gastrointestinal: absent: Abdominal Pain, Stool Changes, Constipation, Diarrhea , Nausea, Vomiting, Appetite Changes, Hematochezia, Hematemesis, Anorexia, Food Intolerance Musculoskeletal: absent: Arthralgias, Back Pain, Neck Pain, Joint Swelling Physical Exam Vital Signs Temp Pulse Resp BP Pulse Ox 07/02/17 11:32 98.3 F 66 16 134/84 99 Temperature: Afebrile Blood Pressure: Normal Pulse: Regular Respiratory Rate: Normal Appearance: Positive for: Well-Appearing, Comfortable Pain Distress: None Mental Status: Positive for: Alert and Oriented X 3 - Systems Exam Pupils: Present: PERRL Extroacular Muscles: Present: EOMI Conjunctiva: Present: Normal Mouth: Present: Moist Mucous Membranes, Normal Lips. No: Dry, Drooling, Trismus Nose (External): Present: Atraumatic. No: Abrasion, Contusion Nose (Internal): Present: Normal Inspection, Moist. No: No Active Bleeding, Engorged, Edematous Neck: Present: Normal Range of Motion, Trachea Midline. No: Meningeal Signs, MIDLINE TENDERNESS Respiratory/Chest: Present: Clear to Auscultation, Good Air Exchange. No: Respiratory Distress, Accessory Muscle Use Cardiovascular: Present: Regular Rate and Rhythm, Normal S1, S2 Rectal: Present: Normal Rectal Tone. No: Rectal Tenderness, Gross Blood, Melena , Hemorrhoids (no external hemorrhoids noted) Upper Extremity: Present: Normal Inspection, Normal ROM, NORMAL PULSES, Capillary Refill < 2s Lower Extremity: Present: Normal Inspection, NORMAL PULSES, Normal ROM, Capillary Refill < 2 s Neurological: Present: GCS=15, CN II-XII Intact, Speech Normal Skin: Present: Warm, Dry, Normal Color, Other (mons pubis area has an are of induration 1 in by 1/2 inch, able to drain with physical pressure, multiple pockets noted on I&D) Psychiatric: Present: Alert, Oriented x 3, Normal Insight, Normal Concentration Medical Decision Making ED Course and Treatment: 07/02/17 12:10 cbc cmp, mg, phosph 07/02/17 13:52 Incision and drainage of left lateral mons pubis wound culture Reassessment Condition: Re-examined, Unchanged - Lab Interpretations Lab Results: 07/02/17 12:25 07/02/17 12:25 Lab Results 07/02/17 12:25: Sodium 141, Potassium 3.6, Chloride 104, Carbon Dioxide 26, Anion Gap 15, BUN 11, Creatinine 0.7, Est GFR ( Amer) > 60, Est GFR (Non- Af Amer) > 60, Random Glucose 69 L, Calcium 9.8, Phosphorus 4.4, Magnesium 1.7, Total Bilirubin 0.2, AST 23, ALT 27, Alkaline Phosphatase 137 H, Total Protein 7.6, Albumin 4.0, Globulin 3.5, Albumin/Globulin Ratio 1.1 07/02/17 12:25: WBC 5.9 D, RBC 4.10, Hgb 11.7 L, Hct 35.6 L, MCV 86.8, MCH 28.5 , MCHC 32.9, RDW 15.4 H, Plt Count 234, MPV 10.4, Gran % 38.3 L, Lymph % (Auto) 43.4 H, [place] % (Auto) 11.8 H, Eos % (Auto) 6.0 H, Baso % (Auto) 0.5, Gran # 2.24 , Lymph # 2.5, [place] # 0.7 H, Eos # 0.4, Baso # 0.03 - Medication Orders Current Medication Orders: Discontinued Medications Lidocaine HCl (Lidocaine 1% (20ml)) 0 ml IJ STAT STA Stop: 07/02/17 13:08 Procedure: Wound Repair - Time Performed Time Performed: 01:30 - Time Out Time Out: Side verified, Site verified - Consent Obtained Consent obtained: Verbal - Performed by Performed by: Mid-level Provider (Neha Vasquez DO) - Indications Indication(s):: Other (abscess) - Location Location:: Left, Lateral (2.5 x 1.0 cm induration) Depth:: Subcutaneous fascia - Anesthetic Technique Anesthetic Technique: Local Local/Regional Anesthetic:: Lidocaine 1% - Wound Examination Wound Examination:: Other (abscess due to ingrown hair) - Irrigated Irrigated with ml of normal saline: 10cc - Complexity Complexity:: Simple (one layer) - Patient tolerated procedure Patient Tolerated Procedure:: Well Procedures - Time-Out Type of Procedure: incision and drainage of abscess Site of Procedure: left lateral mons pubis Correct Patient (with visual ID + MR# on ID Band): Yes Correct Procedure: Yes Correct Site Marked: Yes X-Ray Marked: NA Physician Name: Neha Vasquez DO - Incision and Drainage Site: left lateral mons pubis Blade Size: 11 I & D Procedure: betadine prep, sterile drapes applied Progress: Incision and drainage 2cm iodoform packing 2x2 gauze tegaderm Disposition/Present on Arrival - Present on Arrival Any Indicators Present on Arrival: No History of DVT/PE: No History of Uncontrolled Diabetes: No Urinary Catheter: No History of Decub. Ulcer: No History Surgical Site Infection Following: None - Disposition Have Diagnosis and Disposition been Completed?: Yes Diagnosis: Anal fissure Disposition: HOME/ ROUTINE Disposition Time: 12:45 Patient Plan: Discharge Patient Problems: Current Active Problems Problem Status Onset Anal fissure Acute Condition: STABLE Additional Instructions: follow up with Dr. Wayne in one week high fiber diet metamucil sitz baths warm baths GI referral in a week if symptoms do not resolve for I&D: warm compresses, follow up with Dr. Wayne for follow up. Patient can shower, keep area of incision and drainage clean, dry. Treat with augmentin Prescriptions: Amoxicillin/Potassium Clav [Augmentin 500-125 Tablet] 1 each PO BID #14 tablet Psyllium Husk/Calcium Carb [Metamucil [facility] Fiber 60 mg-0.08 mg-6 M] 2 cap PO DAILY #14 cap Referrals: Madi Rios MD [Primary Care Provider] - Follow up with primary Forms: [facility] ([place])
[2017-07-02 12:43] LABS: BASO # 0.03 K/mm3 (0.0-2.0); BASO % 0.5 % (0.0-3.0); EOS # 0.4 (0.0-0.7); GRAN # 2.24 (1.4-6.5); GRAN % 38.3 % (50.0-68.0); HEMOGLOBIN 11.7 g/dL (12.0-16.0); LYMPH # 2.5 (1.2-3.4); LYMPH % 43.4 % (22.0-35.0); MEAN CELL VOLUME 86.8 fl (80.0-105.0); MEAN CORPUSCULAR HEMOGLOBIN 28.5 pg (25.0-35.0); MEAN CORPUSCULAR HGB CONC 32.9 g/dl (31.0-37.0); MEAN PLATELET VOLUME 10.4 fl (7.0-11.0); MONO # 0.7 (0.1-0.6); MONO % 11.8 % (1.0-6.0); RBC 4.1 10^6/uL (3.5-6.1); RED CELL DISTRIBUTION WIDTH 15.4 % (11.5-14.5); WHITE BLOOD COUNT 5.9 10^3/ul (4.5-11.0)
[2017-07-02 12:53] LABS: ALB/GLOB RATIO 1.1 (1.1-1.8); ALT/SGPT 27 U/L (7-56); AST/SGOT 23 U/L (14-36); BLOOD UREA NITROGEN 11 mg/dL (7-21); CALCIUM 9.8 mg/dL (8.4-10.5); GFR AFRICAN-AMERICAN > 60; GFR NON-AFRICAN AMERICAN > 60; MAGNESIUM 1.7 mg/dL (1.7-2.2)
[2017-07-02] MEDS ORDERED: Lidocaine 1% Inj (20ml) IJ STA (13:07)
[2017-07-02 14:10] VITALS: BP 129/74; PULSE 70; RESP 18; O2SAT 98
== END 2017-07-02 14:11 | disposition home or self-care (01) ==
LOC: ED 10:55
DX: K60.2 Anal fissure, unspecified (principal)

== ENCOUNTER 2018-09-24 11:18 | Emergency (ER) | payer MEDICAID ==
[2018-09-24 11:22] VITALS: BMI 42.3
[2018-09-24 11:23] VITALS: TEMP 98.1; O2SAT 100
--- NOTE | 2018-09-24 11:55 | ED PDOC ---
Arrival/HPI - General Chief Complaint: Cough, Cold, Congestion Time Seen by Provider: 09/24/18 11:32 Historian: Patient - History of Present Illness Narrative History of Present Illness (Text): 09/24/18 11:57 23 year old female, with a past medical history of asthma and gestational diabetes, who presents to the emergency department complaining of shortness of breath and a cold for the past 5 days. Patient reports asthma is triggered when sick. Patient also reports asthma pump and nebulizer at home are not effective and states she usually comes to the hospital for nebulizer treatment when she has an asthma attack. She reports she last used her nebulizer last night but did not use anything this morning. Patient also reports she has seasonal allergies. Patient endorses a productive cough, with "yellowish" phlegm "stuffy" nose. She denies any fevers, chills, headaches, dizziness, nausea, vomiting, diarrhea, chest pain, back pain, or any other complaints. Time/Duration: < week Symptom Onset: Gradual Symptom Course: Unchanged Activities at Onset: Light Context: Home Past Medical History - Provider Review Nursing Documentation Reviewed: Yes - Past History Past History: Non-Contributing - Infectious Disease Hx of Infectious Diseases: None - Tetanus Immunization Tetanus Immunization: Up to Date - Cardiac Hx Cardiac Disorders: No - Pulmonary Hx Asthma: Yes - Neurological Hx Neurological Disorder: No - HEENT Hx HEENT Disorder: No - Renal Hx Renal Disorder: No - Endocrine/Metabolic Hx Endocrine Disorders: No - Hematological/Oncological Hx Blood Transfusions: No Hx Blood Transfusion Reaction: No - Integumentary Hx Dermatological Disorder: No - Musculoskeletal/Rheumatological Hx Musculoskeletal Disorders: No - Gastrointestinal Hx Gastrointestinal Disorders: No - Genitourinary/Gynecological Hx Genitourinary Disorders: No - Psychiatric Hx Psychophysiologic Disorder: No Hx Depression: No Hx Emotional Abuse: No Hx Physical Abuse: No Hx Substance Use: No - Past Surgical History Past Surgical History: No Previous - Surgical History Hx Section: Yes - Anesthesia Hx Anesthesia: No - Suicidal Assessment Feels Threatened In Home Enviroment: No Family/Social History - Physician Review Nursing Documentation Reviewed: Yes Family/Social History: Unknown Family HX Smoking Status: Never Smoked Hx Alcohol Use: No Hx Substance Use: No Substance used: Marijuana Hx Substance Use Treatment: No Allergies/Home Meds Allergies/Adverse Reactions: Allergies No Known Allergies Allergy (Verified 09/24/18 11:21) Home Medications: Home Meds Medication Instructions Recorded Confirmed Albuterol HFA [Ventolin HFA 90 2 puff INH Q6 PRN 12/25/16 09/09/17 mcg/actuation (8 g)] Review of Systems - Physician Review All systems were reviewed & negative as marked: Yes - Review of Systems Constitutional: absent: Fevers Respiratory: Cough, Sputum. absent: SOB Cardiovascular: absent: Chest Pain Gastrointestinal: absent: Abdominal Pain, Diarrhea, Nausea, Vomiting Musculoskeletal: absent: Back Pain, Neck Pain Neurological: absent: Headache, Dizziness Endocrine: absent: Diaphoresis Physical Exam Vital Signs Temp Pulse Resp BP Pulse Ox 09/24/18 11:22 98.1 F 84 18 118/76 100 Temperature: Afebrile Blood Pressure: Normal Pulse: Regular Respiratory Rate: Normal Appearance: Positive for: Well-Appearing, Non-Toxic, Comfortable Pain Distress: None Mental Status: Positive for: Alert and Oriented X 3 - Systems Exam Head: Present: Atraumatic, Normocephalic Pupils: Present: PERRL Extroacular Muscles: Present: EOMI Conjunctiva: Present: Normal Mouth: Present: Moist Mucous Membranes Neck: Present: Normal Range of Motion Respiratory/Chest: Present: Clear to Auscultation, Good Air Exchange, Wheezes (slight wheezing billaterally). No: Respiratory Distress, Accessory Muscle Use Cardiovascular: Present: Regular Rate and Rhythm, Normal S1, S2. No: Murmurs Abdomen: No: Tenderness, Distention, Peritoneal Signs Back: Present: Normal Inspection Upper Extremity: Present: Normal Inspection. No: Cyanosis, Edema Lower Extremity: Present: Normal Inspection. No: Edema Neurological: Present: GCS=15, Speech Normal Skin: Present: Warm, Dry, Normal Color. No: Rashes Psychiatric: Present: Alert, Oriented x 3, Normal Insight, Normal Concentration Medical Decision Making ED Course and Treatment: 09/24/18 11:53 Impression: 23 year old female with a past medical history of asthma presents tot e emergency department complaining of cold symptoms x 4 days. pt given Duoneb and prednisone cxr; wnl Progress Notes: Patient reassessment: Patient is feeling better after medications. Vital signs are stable. Lungs are clear to auscultation bilaterally. Patient was advised to use nebulizer at home take prednisone daily for 4 days ta ke antibiotics daily for 4 days and follow-up with a primary care physician within the next 2 days Patient verbalizes understanding of discharge instructions and need for immediate followup. All aspects of this case were discussed the attending of record. Impression: Asthma, cough Motrin one tablet every 6 hours as needed for pain prednisone daily x 4 days. Zithromax one tablet once daily x4 days Use nebulizer 3 times daily as needed for cough Increase fluids Followup with primary care physician the next 2 days Return immediately if symptoms worsen persist or if new symptoms develop Reassessment Condition: Re-examined, Improved - PA / HIGH VALUE ASSOCIATE / Resident Statement / has reviewed & agrees with the documentation as recorded. MD/ has examined the patient and agrees with the treatment plan. - Scribe Statement The provider has reviewed the documentation as recorded by the Vee Mosher Provider Scribe Attestation: All medical record entries made by the Vee were at my direction and personally dictated by me. I have reviewed the chart and agree that the record accurately reflects my personal performance of the history, physical exam, medical decision making, and the department course for this patient. I have also personally directed, reviewed, and agree with the discharge instructions and disposition. Disposition/Present on Arrival - Present on Arrival Any Indicators Present on Arrival: No History of DVT/PE: No History of Uncontrolled Diabetes: No Urinary Catheter: No History of Decub. Ulcer: No History Surgical Site Infection Following: None - Disposition Have Diagnosis and Disposition been Completed?: Yes Diagnosis: Cough, Asthma Disposition: HOME/ ROUTINE Disposition Time: 13:54 Patient Plan: Discharge Condition: GOOD Discharge Instructions (ExitCare): Cough in Adults Additional Instructions: Motrin every 6 hours as needed for pain/fever reduction prednisone daily x 4 days. Zithromax one tablet once daily x4 days Use nebulizer 3 times daily as needed for cough Increase fluids Followup with primary care physician the next 2 days Return immediately if symptoms worsen persist or if new symptoms develop Prescriptions: Albuterol HFA [Ventolin HFA 90 mcg/actuation (8 g)] 2 puff IH [id number] PRN #1 inhaler PRN Reason: Cough Albuterol 0.083% [Albuterol 0.083% Inhal Meme (2.5 mg/3 ml) UD] 1 vial IH TID PRN #1 packet PRN Reason: Cough Azithromycin [Zithromax] 250 mg PO DAILY #4 tab predniSONE [predniSONE Tab] 3 tab PO DAILY #12 tab Referrals: Marli Banks MD [Medical Doctor] - Follow up with primary [facility] [Outside] - Follow up with primary Jose Solorzano MD [Staff Provider] - Follow up with primary Forms: [employer] (Spanish), WORK NOTE
[2018-09-24] MEDS ORDERED: Albuterol-Ipratrop 3 mg / 0.5 (3 ml) UD IH STA (11:57)
--- NOTE | 2018-09-24 13:28 | RAD ---
Date of service: 09/24/2018 HISTORY: cough COMPARISON: No prior. TECHNIQUE: Chest PA and lateral views FINDINGS: LUNGS: No active pulmonary disease. PLEURA: No significant pleural effusion identified. No pneumothorax apparent. CARDIOVASCULAR: No aortic atherosclerotic calcification present. Normal cardiac size. No pulmonary vascular congestion. OSSEOUS STRUCTURES: No significant abnormalities. VISUALIZED UPPER ABDOMEN: Normal. OTHER FINDINGS: None. IMPRESSION: No active disease.
[2018-09-24 14:45] VITALS: BP 108/57; PULSE 74; RESP 17
== END 2018-09-24 14:44 | disposition home or self-care (01) ==
LOC: ED 11:18
DX: J45.909 Unspecified asthma, uncomplicated (principal)

== ENCOUNTER 2018-11-02 22:30 | Emergency (ER) | payer MEDICAID ==
[2018-11-02 22:41] VITALS: BMI 37.9
--- NOTE | 2018-11-02 22:42 | ED PDOC ---
Arrival/HPI - General Historian: Patient - History of Present Illness Narrative History of Present Illness (Text): 11/02/18 22:42 Patient is a 23 yo obese AA female with history of asthma and gestational diabetes who presents with dizziness. Patient states that she has been getting intermittently dizziness (room spinning) and lightheaded since this morning. She says that it occurs randomly and not associated with any positional changes. She denies any head trauma, falling, or LOC. She denies headache, vision changes, hearing changes, tinnitus, nausea, or vomiting. She denies this ever happening to her before. Time/Duration: 4-6 hours Symptom Onset: Sudden Symptom Course: Unchanged <Cinthia Coronado - Last Filed: 11/02/18 23:05> <Wayne Asencio - Last Filed: 11/03/18 02:06> - General Chief Complaint: Dizziness/Lightheaded Time Seen by Provider: 11/02/18 22:39 Past Medical History - Provider Review Nursing Documentation Reviewed: Yes - Past History Past History: Non-Contributing - Infectious Disease Hx of Infectious Diseases: None - Tetanus Immunization Tetanus Immunization: Up to Date - Cardiac Hx Cardiac Disorders: No - Pulmonary Hx Asthma: Yes - Neurological Hx Neurological Disorder: No - HEENT Hx HEENT Disorder: No - Renal Hx Renal Disorder: No - Endocrine/Metabolic Hx Endocrine Disorders: No - Hematological/Oncological Hx Blood Transfusions: No Hx Blood Transfusion Reaction: No - Integumentary Hx Dermatological Disorder: No - Musculoskeletal/Rheumatological Hx Musculoskeletal Disorders: No - Gastrointestinal Hx Gastrointestinal Disorders: No - Genitourinary/Gynecological Hx Genitourinary Disorders: No - Psychiatric Hx Psychophysiologic Disorder: No Hx Depression: No Hx Emotional Abuse: No Hx Physical Abuse: No Hx Substance Use: No - Past Surgical History Past Surgical History: No Previous - Surgical History Hx Section: Yes - Anesthesia Hx Anesthesia: No - Suicidal Assessment Feels Threatened In Home Enviroment: No <Cinthia Coronado - Last Filed: 11/02/18 23:05> Family/Social History - Physician Review Nursing Documentation Reviewed: Yes Family/Social History: Unknown Family HX Smoking Status: Never Smoked Hx Alcohol Use: No Hx Substance Use: No Substance used: Marijuana Hx Substance Use Treatment: No <Cinthia Coronado - Last Filed: 11/02/18 23:05> Allergies/Home Meds <Cinthia Coronado - Last Filed: 11/02/18 23:05> <Wayne Asencio - Last Filed: 11/03/18 02:06> Allergies/Adverse Reactions: Allergies No Known Allergies Allergy (Verified 11/02/18 22:41) Home Medications: Home Meds Medication Instructions Recorded Confirmed Albuterol HFA [Ventolin HFA 90 2 puff INH Q6 PRN 12/25/16 11/02/18 mcg/actuation (8 g)] Review of Systems - Review of Systems Constitutional: absent: Fatigue, Fevers, Night Sweats Eyes: absent: Vision Changes ENT: absent: Hearing Changes, Tinnitus Respiratory: absent: SOB, Cough Cardiovascular: absent: Chest Pain, Palpitations Gastrointestinal: absent: Abdominal Pain, Nausea, Vomiting Genitourinary Female: absent: Dysuria, Hematuria Musculoskeletal: Normal Skin: absent: Rash, Pruritis, Skin Lesions Neurological: Dizziness, Disequilibrium. absent: Headache, Focal Weakness, Gait Changes, Seizure Endocrine: absent: Diaphoresis Hemo/Lymphatic: absent: Adenopathy <Cinthia Coronado - Last Filed: 11/02/18 23:05> - Physician Review All systems were reviewed & negative as marked: Yes <Wayne Asencio - Last Filed: 11/03/18 02:06> Physical Exam Vital Signs Reviewed: Yes Temperature: Afebrile Blood Pressure: Normal Pulse: Regular Respiratory Rate: Normal Appearance: Positive for: Well-Appearing, Non-Toxic, Comfortable Pain Distress: None Mental Status: Positive for: Alert and Oriented X 3 - Systems Exam Head: Present: Atraumatic, Normocephalic Pupils: Present: PERRL Extroacular Muscles: Present: EOMI Conjunctiva: Present: Normal Ears: Present: Normal, NORMAL TM Mouth: Present: Moist Mucous Membranes Neck: Present: Normal Range of Motion Respiratory/Chest: Present: Clear to Auscultation, Good Air Exchange Cardiovascular: Present: Regular Rate and Rhythm, Normal S1, S2 Back: Present: Normal Inspection Upper Extremity: Present: Normal Inspection Lower Extremity: Present: Normal Inspection Neurological: Present: GCS=15, CN II-XII Intact, Speech Normal, Motor Func Grossly Intact, Normal Sensory Function, Normal Cerebellar Funct Skin: Present: Warm, Dry, Normal Color Psychiatric: Present: Alert, Oriented x 3, Normal Insight, Normal Concentration, Normal Affect, Normal Mood <Cinthia Coronado - Last Filed: 11/02/18 23:05> Vital Signs Temp Pulse Resp BP Pulse Ox 11/02/18 22:50 124/83 11/02/18 22:42 98.8 F 65 18 98 <Wayne Asencio - Last Filed: 11/03/18 02:06> Medical Decision Making ED Course and Treatment: 11/02/18 23:05 POC HCG negative <Cinthia Coronado - Last Filed: 11/02/18 23:05> ED Course and Treatment: Patient Seen with Resident: In agreement with resident note which contains more details about the patient. Patient seen and evaluated with resident. Came up with plan and treatment together. 23 year old female presents complaining of dizziness describes as a room- spinning sensation and lightheaded since this mornin. Plan: -- Prescription for Meclizine -- reassess/dispo Patient remains asymptomatic. A prescription for Meclizine and referral to the clinic was given. Patient is in agreement with the plan. Patient is stable for discharged. Patient was instructed to follow up with physician or return if symptoms worsen or new concerning symptoms arise. <Wayne Asencio - Last Filed: 11/03/18 02:06> - PA / DISTRICT ENGINEER / Resident Statement / has reviewed & agrees with the documentation as recorded. / has examined the patient and agrees with the treatment plan. - Scribe Statement The provider has reviewed the documentation as recorded by the Vee Koenig Provider Scribe Attestation: All medical record entries made by the Vee were at my direction and personally dictated by me. I have reviewed the chart and agree that the record accurately reflects my personal performance of the history, physical exam, medical decision making, and the department course for this patient. I have also personally directed, reviewed, and agree with the discharge instructions and disposition. <Wayne Asencio - Last Filed: 11/03/18 02:06> Disposition/Present on Arrival - Present on Arrival Any Indicators Present on Arrival: No History of DVT/PE: No History of Uncontrolled Diabetes: No Urinary Catheter: No History Surgical Site Infection Following: None - Disposition Have Diagnosis and Disposition been Completed?: Yes Disposition Time: 22:55 Patient Plan: Discharge <Cinthia Coronado - Last Filed: 11/02/18 23:05> <Wayne Asencio - Last Filed: 11/03/18 02:06> - Disposition Diagnosis: Acute labyrinthitis Disposition: HOME/ ROUTINE Condition: GOOD Additional Instructions: CARLITOS TAMAYO, thank you for letting us take care of you today. Your provider was Wayne Asencio MD and you were treated for DIZZINESS. The emergency medical care you received today was directed at your acute symptoms. If you were prescribed any medication, please fill it and take as directed. It may take several days for your symptoms to resolve. Return to the Emergency Department if your symptoms worsen, do not improve, or if you have any other problems. Please contact your doctor or call one of the physicians/clinics you have been referred to that are listed on the Patient Visit Information form that is included in your discharge packet. Bring any paperwork you were given at discharge with you along with any medications you are taking to your follow up visit. Our treatment cannot replace ongoing medical care by a primary care provider outside of the emergency department. Thank you for allowing the [facility] team to be part of your care today. Prescriptions: Meclizine [Meclizine*] 25 mg PO Q6 PRN #12 tab PRN Reason: Dizziness [place]: [facility] [place] - Follow up with primary [facility] [Outside] - Follow up with primary Forms: [employer] (Salvadorean)
[2018-11-02 22:44] VITALS: PULSE 65; RESP 18; TEMP 98.8; O2SAT 98
[2018-11-02 22:50] VITALS: BP 124/83
== END 2018-11-02 23:09 | disposition home or self-care (01) ==
LOC: ED 22:30
DX: H83.09 Labyrinthitis, unspecified ear (principal)